=== PATIENT | female | born 1950 | race Caucasian/White ===

== ENCOUNTER 2016-11-30 17:08 | Inpatient (IN) | payer MEDICARE, OTHER ==
[~2016-11-30] VITALS: Ht 162.6 cm; Wt 115.7 kg
[~2016-11-30 17:08] MED LIST: ALDACTONE25 MG PO; AMITRIPTYLINE H50 MG PO; BAYER CHEWABLE81 MG PO; BETAPACE 80 MG80 MG PO; BYSTOLIC5 MG PO; CYMBALTA60 MG PO; DALIRESP500 MCG PO; EFFIENT10 MG PO; ELAVIL25 MG PO; ESTRACE1 MG PO; FERROUS SULFAT325 MG PO; FLORAJEN3 CAPS460 MG PO; GLUCOPHAGE500 MG PO; IPRAT-ALBUT 0.5-3 ML UPD; K-DUR20 MEQ PO; LACTINEX C1 TAB.CHEW PO; LASIX40 MG PO; LASIX80 MG PO; LISINOPRIL5 MG PO; LIVALO1 MG PO; MAG-OX 400 MG400 MG PO; METOPROLOL TART25 MG PO; MUCINEX DM ER1 EAC1 PO; NEURONTIN800 MG PO; NORVASC2.5 MG PO; POTASSIUM CHLO10 ME1 PO; PRAVACHOL80 MG PO; PROTONIX40 MG PO; PULMICORT0.5 MG/21 UPD; SINGULAIR10 MG PO; STERAPRED DS 1210 MG PO; TOVIAZ4 MG; TYLENOL325 MG PO; VIBRAMYCIN 100100 MG PO; VITAMIN D2000 UNIT; ZYLOPRIM300 MG PO
[2016-11-30 17:35] VITALS: BP 108/50; BMI 43.8
[2016-11-30] MEDS ORDERED: GLUCOPHAGE500 MG PO (17:55)
[2016-11-30] MEDS ORDERED: MAG-OX 400 MG400 MG PO (17:58)
[2016-11-30 18:46] LABS: HEMATOCRIT 32.3 % (36.0-48.0); HEMOGLOBIN 10.1 g/dL (12-16); MCH 28.9 pg (26.0-34.0); MCHC 31.3 g/dL (31.0-37.0); MCV 92.6 fL (80.0-100.0); MEAN PLATELET VOLUME 10.3 fL (7.4-10.4); PLATELET COUNT 225 10x3/uL (130-400); RBC 3.49 10x6/uL (4.00-5.40); RDW 16.6 % (11.5-14.5)
[2016-11-30 19:01] LABS: ALBUMIN 2.5 g/dL (3.4-5.0); ANION GAP 15.5 mmol/L (8-16); BILIRUBIN - TOTAL 0.47 mg/dL (0.2-1.3); CALCIUM 8.9 mg/dL (8.5-10.1); CREATININE - SERUM 1.3 mg/dL (0.6-1.3); POTASSIUM - SERUM 4.5 mmol/L (3.5-5.1); PROTEIN - SERUM 5.6 g/dL (6.4-8.2)
[2016-11-30 19:03] LABS: LYMPHOCYTES 7 % (15-50); MONOCYTES 1 % (2-11); NEUTROPHILS 72 % (40-80); PLATELET ESTIMATE NORMAL
[2016-11-30 19:20] VITALS: BP 117/66
[2016-11-30 20:00] VITALS: BP 128/53
[2016-11-30 20:14] VITALS: BP 116/73
[2016-12-01 00:19] VITALS: BP 99/43
--- NOTE | 2016-12-01 02:13 | NUR ---
EYES CLOSED RESPIRATIONS WITH EASE AND UNLABORED.
[2016-12-01 04:22] VITALS: BP 100/45
[2016-12-01 06:14] LABS: BASOPHILS 0.1 % (0.0-2.0); EOSINOPHILS 0.1 % (0-7); HEMATOCRIT 28.9 % (36.0-48.0); IMMATURE GRANULOCYTES 0.8 % (0-5); LYMPHOCYTES 6.4 % (15-50); MCH 28.6 pg (26.0-34.0); MCHC 31.1 g/dL (31.0-37.0); MCV 91.7 fL (80.0-100.0); MEAN PLATELET VOLUME 10.2 fL (7.4-10.4); NEUTROPHILS 87.6 % (40-80); PLATELET COUNT 217 10x3/uL (130-400); RBC 3.15 10x6/uL (4.00-5.40); RDW 16.5 % (11.5-14.5)
[2016-12-01 06:37] LABS: ALBUMIN 1.9 g/dL (3.4-5.0); ANION GAP 13.1 mmol/L (8-16); BILIRUBIN - TOTAL 0.6 mg/dL (0.2-1.3); CALCIUM 8.5 mg/dL (8.5-10.1); CARBON DIOXIDE 28.3 mmol/L (21.0-32.0); POTASSIUM - SERUM 4.4 mmol/L (3.5-5.1); PROTEIN - SERUM 5.9 g/dL (6.4-8.2)
[2016-12-01 06:43] LABS: CREATININE - SERUM 1.7 mg/dL (0.6-1.3)
[2016-12-01 08:09] VITALS: BP 104/51
--- NOTE | 2016-12-01 11:14 | NUR ---
AROUSES EASILY TO VERBAL STIMULATION. NO C/O PAIN OR DISCOMFORT AT THIS TIME. CHEST IS CLEAR BILATERALLY, BUT DIMINISHED ON LEFT LOWER LOBES. REPORTS OCCASSIONAL PRODUCTIVE COUGH. DENIES NEEDS.
[2016-12-01 12:49] VITALS: BP 104/48
[2016-12-01 13:30] VITALS: Ht 162.6 cm; Wt 115.7 kg
--- NOTE | 2016-12-01 14:50 | NUR ---
RESTING WITH EYES CLOSED - NO S/SX OF DISTRESS OBSERVED
[2016-12-01 15:53] VITALS: BP 88/44
[2016-12-01 19:00] VITALS: BP 111/48
--- NOTE | 2016-12-01 19:25 | NUR ---
Received patient in bed, IV infusing with NS, no voiced complaints, oxygen on @ 2L/min. Respirations unlabored.
[2016-12-02 04:42] VITALS: BP 98/48
[2016-12-02 05:09] LABS: BASOPHILS 0 % (0.0-2.0); EOSINOPHILS 0 % (0-7); HEMATOCRIT 28.5 % (36.0-48.0); HEMOGLOBIN 8.7 g/dL (12-16); IMMATURE GRANULOCYTES 0.8 % (0-5); LYMPHOCYTES 4.3 % (15-50); MCHC 30.5 g/dL (31.0-37.0); MCV 91.6 fL (80.0-100.0); MEAN PLATELET VOLUME 10.6 fL (7.4-10.4); MONOCYTES 0.9 % (2-11); PLATELET COUNT 221 10x3/uL (130-400); RBC 3.11 10x6/uL (4.00-5.40); RDW 16.4 % (11.5-14.5); WBC 21.3 10x3/uL (4.8-10.8)
[2016-12-02 05:49] LABS: BILIRUBIN - TOTAL 0.23 mg/dL (0.2-1.3); CALCIUM 8.9 mg/dL (8.5-10.1); CARBON DIOXIDE 26.7 mmol/L (21.0-32.0); CREATININE - SERUM 1.7 mg/dL (0.6-1.3); PROTEIN - SERUM 6.4 g/dL (6.4-8.2)
[2016-12-02 06:05] LABS: ANION GAP 13.8 mmol/L (8-16); POTASSIUM - SERUM 3.5 mmol/L (3.5-5.1)
--- NOTE | 2016-12-02 06:15 | NUR ---
Slept on and off, compliant with medications, up to bathroom x 3, voiding. Vioded x 1 without measuring, has hat in toilet, voided a furthur 500mls this shift. States she feels she is improving. Denies pain or discomfort at this time.
--- NOTE | 2016-12-02 08:30 | NUR ---
RECIEVED REPORT ON PATIENT, PATIENT IS ALERT AND ORIENTED. PATIENTIS SITTING ON SIDE OF BED AT THIS TIME. PATIENT HAS A L WRIST IV WITH NS AT 10ML/HR. PATIENT IS SR ON MONITOR WITH A RATE OF 78. PATIENT DENIES ANY NEEDS OR COMPLAINTS AT THIS TIME. WILL CONT TO MONITOR PATIENT. CPOC
[2016-12-02 08:38] VITALS: BP 113/46
[2016-12-02 09:03] LABS: % SATURATION 4 % (15-55); IRON 13 ug/dl (35-150); TOTAL IRON BIND CAPACITY 294 ug/dl (260-445); UNSAT IRON BIND CAPACITY 281 ug/dl (150-375)
--- NOTE | 2016-12-02 11:15 | NUR ---
PATIENT SITTING UP IN BED EATING LUNCH. DENIES ANY NEEDS AT THIS TIME. CPOC
--- NOTE | 2016-12-02 13:15 | NUR ---
PATIENT IV INFILTRATED, IV DC WITH CATH TIP INTACT. IV RESITED TO R HAND, 22G. PATENT. WILL CONT TO MONITOR
[2016-12-02 13:40] VITALS: BP 101/52
[2016-12-02 16:07] VITALS: BP 107/58
--- NOTE | 2016-12-02 18:00 | NUR ---
PATIENT SITTING UP IN BED EATING DINNER. DENIES ANY NEEDS OR PAIN AT THIS TIME. WILL CONT TO MONITOR PATIENT
[2016-12-02 23:00] VITALS: BP 128/75
--- NOTE | 2016-12-03 04:35 | NUR ---
LYING SUPINE IN MID CHARLES'S POSITION. EYES CLOSED AND RESPIRATIONS EVEN AND UNLABORED. CALL LIGHT IN REACH, BED IN LOWEST POSITION AND SR X2. CALL LIGHT IN REACH, WILL CONTINUE WITH PLAN OF CARE.
[2016-12-03 06:53] LABS: BASOPHILS 0.1 % (0.0-2.0); EOSINOPHILS 0 % (0-7); HEMATOCRIT 29.8 % (36.0-48.0); HEMOGLOBIN 9.1 g/dL (12-16); LYMPHOCYTES 5.9 % (15-50); MCH 28.2 pg (26.0-34.0); MCHC 30.5 g/dL (31.0-37.0); MCV 92.3 fL (80.0-100.0); MEAN PLATELET VOLUME 10.8 fL (7.4-10.4); MONOCYTES 2.8 % (2-11); NEUTROPHILS 90.2 % (40-80); PLATELET COUNT 261 10x3/uL (130-400); RBC 3.23 10x6/uL (4.00-5.40); RDW 16.1 % (11.5-14.5)
[2016-12-03 07:08] LABS: WBC 14.7 10x3/uL (4.8-10.8)
[2016-12-03 07:56] LABS: CALCIUM 8.8 mg/dL (8.5-10.1); CARBON DIOXIDE 24.6 mmol/L (21.0-32.0); CREATININE - SERUM 1.4 mg/dL (0.6-1.3); POTASSIUM - SERUM 3.6 mmol/L (3.5-5.1)
[2016-12-03 08:21] VITALS: BP 127/65
--- NOTE | 2016-12-03 09:00 | NUR ---
Patient Name: GENEVIEVE MOLINA Admission Status: Elective Accout number: [id number] Admission Date: 11-30-2016 : 1950 Admission Diagnosis: Attending: TREASURE Current LOS: 3 Anticipated DC Date: 12-07-2016 Planned Disposition: Home Primary Insurance: MEDICARE A & B Discharge Planning Comments: CM MET WITH PATIENT REGARDING D/C NEEDS AND PLANS. PATIENT STATED SHE LIVES WITH HER SPOUSE (KAR) AND HE WILL TRANSPORT PATIENT HOME AT D/C. PATIENT STATED SHE HAS 3 STEPS W/RAILS TO ENTER HOME AND NO STAIRS INSIDE. PATIENT IS INDEPENDENT WITH HER CARE AND HAS A NEBULIZER AT HOME IF NEEDED. PATIENTS PCP IS DR. UMANZOR AND USES [facility] ON [facility]. CM SPOKE WITH PATIENT REGARDING HOME HEALTH AND SHE STATED "NO, I DO NOT WANT HOME HEALTH." CM WILL CONTINUE TO FOLLOW PATIENT WITH D/C NEEDS AND PLANS. PCP DR. UMANZOR [employer] [facility] [phone] KAR (SPOUSE) [phone] Maintenance Mechanic Supervisor: Justina Hennessy Is the patient Alert and Oriented? Yes 0 * How many steps to enter\\exit or inside your home? 3 W/RAILS 0 * PCP DR. UMANZOR 0 * Pharmacy [facility] ON [facility] 0 * Preadmission Environment Home with Family 0 * ADLs Independent 0 * Equipment Nebulizer 0 * List name and contact numbers for known caregivers / representatives who currently or will assist patient after discharge: KAR (SPOUSE) [phone] * Community resources currently utilized None 0 * Additional services required to return to the preadmission environment? Yes 0 * Can the patient safely return to the preadmission environment? Yes 0 * Has this patient been hospitalized within the prior 30 days at any hospital? Yes 0 Grand Total: 0
[2016-12-03 12:45] VITALS: BP 111/44
[2016-12-03 16:30] VITALS: BP 112/59
--- NOTE | 2016-12-03 18:41 | NUR ---
PATIENT IS BACK IN BED FROM SITTING UP IN CHAIR. AMBULATION A LITTLE SLOW BUT STEADY. SOB ON EXERTION NOTED. BED IS LOW CALL LIGHT IS IN REACH
[2016-12-03 19:00] VITALS: BP 119/52
--- NOTE | 2016-12-03 19:50 | NUR ---
PATIENT RESTING IN LEFT LATERAL POSITION. NO SIGNS OF DISTRESS NOTED. DENIES ANY NEEDS AT THIS TIME. BED LOW CALL LIGHT IN REACH.
--- NOTE | 2016-12-04 02:15 | NUR ---
LYING SUPINE WITH RESPIRATIONS EVEN AND NON LABORED. OXYGEN ON 2L VIA NC. LEFT UPPER ARM MIDLINE PATENT WITH NS INFUSING @10 ML/HR. PT ON TELEMETRY AND 76 SR. REFUSES SCD'S, CALL LIGHT IN REACH. WILL CONTINUE WITH PLAN OF CARE.
[2016-12-04 04:00] VITALS: BP 124/51
[2016-12-04 05:09] LABS: BASOPHILS 0.1 % (0.0-2.0); EOSINOPHILS 0 % (0-7); HEMATOCRIT 29.7 % (36.0-48.0); HEMOGLOBIN 9.2 g/dL (12-16); IMMATURE GRANULOCYTES 2.4 % (0-5); MCH 28.1 pg (26.0-34.0); MCV 90.8 fL (80.0-100.0); MEAN PLATELET VOLUME 10.8 fL (7.4-10.4); MONOCYTES 5.8 % (2-11); NEUTROPHILS 83.7 % (40-80); PLATELET COUNT 228 10x3/uL (130-400); RBC 3.27 10x6/uL (4.00-5.40); RDW 15.6 % (11.5-14.5)
[2016-12-04 05:31] LABS: WBC 9.9 10x3/uL (4.8-10.8)
[2016-12-04 05:36] LABS: ANION GAP 13.1 mmol/L (8-16); CALCIUM 9.5 mg/dL (8.5-10.1); CARBON DIOXIDE 28.9 mmol/L (21.0-32.0); CREATININE - SERUM 1.2 mg/dL (0.6-1.3)
[2016-12-04 08:30] VITALS: BP 121/52
[2016-12-04 11:52] VITALS: BP 135/62
[2016-12-04 15:55] VITALS: BP 102/44
[2016-12-04 21:18] VITALS: BP 111/41
--- NOTE | 2016-12-05 | NUR ---
LYING SUPINE WITH EYES CLOSED AND RESPIRATIONS EVEN AND NON LABORED. CALL LIGHT IN REACH, WILL CONTINUE WITH PLAN OF CARE.
[2016-12-05 05:38] LABS: BASOPHILS 0.4 % (0.0-2.0); EOSINOPHILS 0.1 % (0-7); HEMATOCRIT 31.4 % (36.0-48.0); HEMOGLOBIN 9.8 g/dL (12-16); IMMATURE GRANULOCYTES 6.8 % (0-5); LYMPHOCYTES 10.9 % (15-50); MCH 28.2 pg (26.0-34.0); MCHC 31.2 g/dL (31.0-37.0); MCV 90.2 fL (80.0-100.0); MEAN PLATELET VOLUME 10.5 fL (7.4-10.4); MONOCYTES 4.9 % (2-11); NEUTROPHILS 76.9 % (40-80); PLATELET COUNT 225 10x3/uL (130-400); RBC 3.48 10x6/uL (4.00-5.40); RDW 15.2 % (11.5-14.5)
[2016-12-05 05:55] LABS: ANION GAP 11.2 mmol/L (8-16); CARBON DIOXIDE 30.7 mmol/L (21.0-32.0); CREATININE - SERUM 1.2 mg/dL (0.6-1.3); POTASSIUM - SERUM 3.9 mmol/L (3.5-5.1)
[2016-12-05 08:15] VITALS: BP 125/57
[2016-12-05 11:46] VITALS: BP 128/62
--- NOTE | 2016-12-05 13:55 | NUR ---
CHANGED DRESSING TO LEFT UPPER ARM MIDLINE. STERILE TECHNIQUE MAINTAINED. BOTH MYSELF AND THE PATIENT WORE A SURGICAL MASK THROUGH THE ENTIRE DRESSING CHANGE.
[2016-12-05 14:21] LABS: FOLATE (FOLIC ACID) - SERUM 7.7 ng/mL (>3.0)
--- NOTE | 2016-12-05 16:07 | NUR ---
NUTRITION MONITORING & EVAL CHART REVIEWED. PROVIDED PT WITH DIABETIC DIET EDU. ANSWERED PT QUESTIONS. ENCOURAGED COMPLIANCE. RD FOLLOWING
[2016-12-05 16:10] VITALS: BP 104/42
[2016-12-05 19:00] VITALS: BP 104/50
--- NOTE | 2016-12-05 22:05 | NUR ---
RESTING IN BED. ALERT ORIENTED CONVERSANT. PROVIDED COUGH SYRUP WITH MEDICATIONS PER REQUEST. NO ACUTE DISTRESS NOTED
[2016-12-06] VITALS: BP 112/84
--- NOTE | 2016-12-06 00:05 | NUR ---
RESTING WITH EYES CLOSED, RESP WITH EASE, NO DISTRESS NOTED, SR'S UP, XL IN REACH
[2016-12-06 04:00] VITALS: BP 121/47
[2016-12-06] MEDS ORDERED: LEVAQUIN750 MG PO (06:49)
[2016-12-06] MEDS ORDERED: BROVANA15 MCG/2 M INH (06:50)
[2016-12-06] MEDS ORDERED: ATROVENT 0.02%2.5 ML UPD (06:50)
[2016-12-06] MEDS ORDERED: XOPENEX 1.1.25 MG/3 UPD (06:51)
[2016-12-06] MEDS ORDERED: GLIPIZIDE10 MG PO (06:54)
[2016-12-06] MEDS ORDERED: STERAPRED DS 1210 MG PO (06:55)
[2016-12-06] MEDS ORDERED: PULMICORT0.5 MG/21 UPD (06:56)
[2016-12-06] MEDS ORDERED: BACTRIM DS TABL1 TAB PO (06:57)
[2016-12-06 06:59] LABS: ANION GAP 8.6 mmol/L (8-16); CALCIUM 9.5 mg/dL (8.5-10.1); CARBON DIOXIDE 32.5 mmol/L (21.0-32.0); CREATININE - SERUM 1.1 mg/dL (0.6-1.3); POTASSIUM - SERUM 4.1 mmol/L (3.5-5.1)
[2016-12-06 07:04] LABS: BASOPHILS 0.6 % (0.0-2.0); EOSINOPHILS 0.6 % (0-7); HEMATOCRIT 33.8 % (36.0-48.0); HEMOGLOBIN 10.6 g/dL (12-16); IMMATURE GRANULOCYTES 9.2 % (0-5); LYMPHOCYTES 11.8 % (15-50); MCH 27.8 pg (26.0-34.0); MCHC 31.4 g/dL (31.0-37.0); MCV 88.7 fL (80.0-100.0); MEAN PLATELET VOLUME 10.4 fL (7.4-10.4); NEUTROPHILS 71.8 % (40-80); PLATELET COUNT 216 10x3/uL (130-400); RBC 3.81 10x6/uL (4.00-5.40); RDW 15.2 % (11.5-14.5); WBC 10.3 10x3/uL (4.8-10.8)
[2016-12-06 08:04] VITALS: BP 117/51
--- NOTE | 2016-12-06 08:42 | NUR ---
PATIENT AWAKE, ALERT AND ORIENTED X'S 4. RESPIRATIONS ARE EVEN AND UNLABORED ON ROOM AIR. PATIENT SITTING UP IN THE CHAIR. NO SIGNS OF DISTRESS NOTED. PATIENT DENIES NEEDS.
--- NOTE | 2016-12-06 10:29 | NUR ---
12/06/2016 10:26 DCP: Discharge Planning Patient Name: GENEVIEVE MOLINA Encounter No: [id number] : 1950 Primary Insurance: MEDICARE A & B Anticipated DC Date: 12-07-2016 Planned Disposition: Home DCP follow-up note: DC order rec'd. Patient and family in agreement with discharge plan. No changes to plan. Case management will follow and assist as needed. Mile [place]
--- NOTE | 2016-12-06 10:35 | NUR ---
12/06/2016 10:34 DCP: Discharge Planning Rollator walker has been delivered to hospital by [facility].
--- NOTE | 2016-12-06 10:53 | NUR ---
LEFT FOREARM MIDLINE CATH DC'D PER ORDERS. DISCHARGE TEACHING COMPLETED, PT VERBALIZED UNDERSTANDING. PT WILL CALL NURSE WHEN READY TO LEAVE THE FLOOR.
--- NOTE | 2016-12-06 11:30 | NUR ---
pt is waiting for family member to pick her up. She doesn't want to take insulin or test at this time.
--- NOTE | 2016-12-06 12:16 | NUR ---
PATIENT LEFT VIA WHEELCHAIR WITH VOLUNTEER STAFF. ASSISTED PATIENT TAKING HER THINGS OUT TO THE VEHICLE SHE IS LEAVING IN.
--- NOTE | 2016-12-09 11:07 | HP ---
PATIENT: GENEVIEVE MOLINA MEDICAL RECORD: [id number] ACCOUNT: [id number] LOCATION:D.MS [id number] : [birth year] ADMISSION DATE: 11/30/16 HISTORY AND PHYSICAL EXAMINATION CHIEF COMPLAINT: Pneumonia and shortness of breath. HISTORY OF PRESENT ILLNESS: She is a 65-year-old female who presented to the office with fever of 101 last night, more shortness of breath, felt like a band across her back. She was in the office a couple of days ago. At that time, her white count was 7000. Today in the office, her white count was 33. X-ray showed a right lower lobe infiltrate, possibly seen the other day, but new left upper lobe infiltrate seen as well. PAST MEDICAL HISTORY: She has a significant past medical history atherosclerotic heart disease with stent in the past. She has a history of CHF, COPD, noninsulin-dependent diabetes mellitus, peripheral neuropathy and hypertension. FAMILY HISTORY: Noncontributory. HOME MEDICATIONS: Include allopurinol, Elavil, aspirin, ferrous sulfate, Lasix, gabapentin, lisinopril, metformin, metoprolol, Singulair, ____, KCl, pravastatin, sotalol and Aldactone. She is supposed to be on updrafts at home. She was on albuterol, but that was discontinued due to sinus tachycardia. She had levalbuterol called in but has not been able to get ____. REVIEW OF SYSTEMS: HEENT: No visual or auditory changes. She has had a little bit of a scratchy throat. Denies any dysphagia. She had a fever up to 101 last night. CARDIOPULMONARY: She denies chest pain, but has had some tightness across her chest with expiration. She has also been complaining of some cough with some shortness of breath, worse on exertion. GASTROINTESTINAL: Denies any abdominal pain, nausea, vomiting or diarrhea. No melena or hematochezia. GENITOURINARY: Denies any dysuria or hematuria. MUSCULOSKELETAL: Some achiness all over joint swelling in the lower extremities as chronic with some knee and low back issues. PHYSICAL EXAMINATION: VITAL SIGNS: Temperature here was 98.6, pulse of 70, respirations 20 and blood pressure 130/76. HEENT: PERRLA, EOMI. Pharynx was clear. NECK: Supple. No JVD or adenopathy. HEART: Had an S1, S2 with II/ systolic ejection murmur. LUNGS: Had some rhonchi heard bibasilar area and in the left upper lobe as well with some expiratory wheezing anteriorly. ABDOMEN: Soft, obese, nontender and nondistended. EXTREMITIES: Had trace edema around the ankles. No calf warmth or tenderness. NEUROLOGIC: Grossly intact. DIAGNOSTIC DATA: Her chest x-ray again, bilateral infiltrates, worse on the left. LABORATORY DATA: White count 33,000 with an H&H of 10 and 33, and platelet HISTORY AND PHYSICAL [id number] GENEVIEVE MOLINA count of 289. ASSESSMENT AND PLAN: Bilateral pneumonia with a history of chronic obstructive pulmonary disease, history of congestive heart failure, diabetes and coronary artery disease. We are going to consult pulmonary. She has been following Dr. Gomez as an outpatient. We are going to start her on Levaquin, Zosyn and levalbuterol nebulizers. We will continue with her home medications. She had been put on fludrocortisone the other day. I believe, she had been having some low blood pressure episodes. We are going to hold that for right now and defer restarting that to her primary care physician, Dr. Meyers. TRANSINT:[id number] Voice Confirmation ID: [id number] DOCUMENT ID: [id number] JOSEPH DANIELLE DO at 1107 CC: [id number] DICTATION DATE: 11/30/16 1638 [employer]DLE SCHOOL SPORTS COACH: 11/30/16 1750 ADM IN [place] [id number] [place] [address]
--- NOTE | 2016-12-26 09:12 | CN ---
PATIENT NAME:GENEVIEVE SKAGGS MEDICAL RECORD: [id number] : 48 LOCATION:D.MS Fam2230 ADMIT DATE: 11/30/16 ACCOUNT: [id number] CONSULTING PHYSICIAN: NIRALI RALPH MD REFERRING PHYSICIAN: DARREN UMANZOR MD DATE OF CONSULTATION: 12/01/2016 Pulmonary Consultation CONSULT REQUESTING PHYSICIAN: Darren Umanzro MD REASON FOR CONSULTATION: Acute exacerbation of chronic obstructive pulmonary disease, bilateral pneumonia. HISTORY OF PRESENT ILLNESS: Ms. Skaggs has a history of COPD and coronary artery disease. The patient has recent hospitalization times 2 days this month. She has fever and chills. She was seen in Dr. Umanzor' office and admitted directly from the office yesterday. She has also fever of 102, now she is not feeling well. She has coughing, wheezing and shortness of breath. REVIEW OF SYSTEMS: Mainly in the history of present illness. PAST MEDICAL HISTORY: 1. COPD. 2. Congestive heart failure. 3. Coronary artery disease. 4. Noninsulin-dependent type 2 diabetes mellitus. 5. Hypertension. PAST SURGICAL HISTORY: She had multiple catheterizations and stent placement. ALLERGIES: SHE IS ALLERGIC TO MORPHINE, CODEINE, ZOCOR AND LIPITOR. PERSONAL AND SOCIAL HISTORY: The patient is an ex-smoker. She is a nondrinker. FAMILY HISTORY: Noncontributory. PHYSICAL EXAMINATION: GENERAL: Now, the patient is lying comfortably. She is not in acute distress. VITAL SIGNS: The blood pressure is 104/51, pulse is 94, respirations 18, temperature 98.2, and SpO2 of 92% on 2 liters nasal cannula. HEENT: Conjunctivae are pink, sclerae are nonicteric. NECK: Supple. No JVD. CHEST: There are bilateral crackles, wheeze on forceful expiration. HEART: Rhythm regular, normal sound, no murmur. ABDOMEN: Soft, bowel sounds present. No hepatosplenomegaly. RECTAL: Deferred. EXTREMITIES: No cyanosis, no clubbing, no pedal edema. SKIN: Warm, normal turgor. CENTRAL NERVOUS SYSTEM: The patient is awake and alert. There is no obvious cranial nerve abnormality. The gait was not tested. CHEST RADIOGRAPH: There is bilateral infiltrate in the left upper lobe and bilateral lower lobes. CONSULT REPORT [id number] GENEVIEVE SKAGGS OTHER LABORATORY DATA: CBC: The WBC is 32,000, hemoglobin is 10, hematocrit 32.3, the platelet count 225. Chemistry: Sodium 135, potassium is 4.4, BUN is 18, creatinine 1.3. The glucose is 163. IMPRESSION: 1. Acute exacerbation of chronic obstructive pulmonary disease. 2. Acute hypoxic respiratory failure. 3. Bilateral pneumonia, most likely hospital-acquired pneumonia as the patient had recent frequent hospitalizations. 4. Leukocytosis secondary to pneumonia. 5. History of congestive heart failure. 6. History of coronary artery disease. 7. Type 2 diabetes mellitus. RECOMMENDATION: Continue Zosyn and Levaquin. I will add vancomycin. I will start methylprednisolone IV. Add ipratropium nebulizer, budesonide and Brovana nebulizer. Continue Xopenex nebulizer. Follow up labs and chest radiograph. Check ABG and serum ammonia level. Dr. Umanzor, once again, thank you for involving me in the care of Ms. Skaggs. TRANSINT:[id number] Voice Confirmation ID: [id number] DOCUMENT ID: [id number] NIRALI RALPH MD at 0912 CC: DARREN UMANZOR MD [id number] DICTATION DATE: 12/01/16 1244 HEALTHCARE ECONOMICS CONSULTANT: 12/01/16 1518 DIS IN 12/06/[address] [address]
== END 2016-12-06 12:18 | disposition home or self-care (01) | DRG 189 ==
LOC: D.MS 17:08
PROVIDERS: ADMIT Family Medicine
PROC: 05HF33Z Insertion of Infusion Device into Left Cephalic Vein, Percutaneous Approach (ICD-10-PCS; principal; 2016-12-03)
DX: J96.21 Acute and chronic respiratory failure with hypoxia (principal); J15.6 Pneumonia due to other Gram-negative bacteria; J15.212 Pneumonia due to Methicillin resistant Staphylococcus aureus; J44.0 Chronic obstructive pulmonary disease with (acute) lower respiratory infection; Z68.41 Body mass index [BMI] 40.0-44.9, adult; J44.1 Chronic obstructive pulmonary disease with (acute) exacerbation; I11.0 Hypertensive heart disease with heart failure; I50.9 Heart failure, unspecified; R00.0 Tachycardia, unspecified; T48.6X5A Adverse effect of antiasthmatics, initial encounter; E11.40 Type 2 diabetes mellitus with diabetic neuropathy, unspecified; E66.01 Morbid (severe) obesity due to excess calories; D50.9 Iron deficiency anemia, unspecified; I25.10 Atherosclerotic heart disease of native coronary artery without angina pectoris; Y95 Nosocomial condition

== ENCOUNTER 2016-12-13 18:41 | Inpatient (IN) | payer MEDICARE, OTHER ==
--- NOTE | 2016-12-12 19:40 | NUR ---
ASSESSMENT COMPLETE, 02-2L, IV-L. BREAST-SL,[id number]-72.5, HAS LISA, [id number], FRIEND AT BEDSIDE, DENIES ANY NEEDS, CALL LIGHT IN REACH, BED IS LOW, SRX2, WILL CONTINUE MONITOR
[~2016-12-13] VITALS: Ht 162.6 cm; Wt 115.7 kg
[~2016-12-13 18:41] MED LIST changes: +ATROVENT 0.02%2.5 ML UPD; +BACTRIM DS TABL1 TAB PO; +BROVANA15 MCG/2 M INH; +GLIPIZIDE10 MG PO; +LEVAQUIN750 MG PO; +XOPENEX 1.1.25 MG/3 UPD
[2016-12-13 20:00] LABS: BASOPHILS 0.1 % (0.0-2.0); EOSINOPHILS 0.1 % (0-7); HEMATOCRIT 33.1 % (36.0-48.0); HEMOGLOBIN 10.4 g/dL (12-16); IMMATURE GRANULOCYTES 1.1 % (0-5); LYMPHOCYTES 9.7 % (15-50); MCH 28.1 pg (26.0-34.0); MCHC 31.4 g/dL (31.0-37.0); MCV 89.5 fL (80.0-100.0); MEAN PLATELET VOLUME 10.8 fL (7.4-10.4); MONOCYTES 2.2 % (2-11); NEUTROPHILS 86.8 % (40-80); PLATELET COUNT 229 10x3/uL (130-400); RDW 16.1 % (11.5-14.5); WBC 15.3 10x3/uL (4.8-10.8)
[2016-12-13 20:12] LABS: ALBUMIN 2.8 g/dL (3.4-5.0); ALKALINE PHOSPHATASE 42 U/L (46-116); ALT (SGPT) 15 U/L (10-68); BILIRUBIN - TOTAL 0.17 mg/dL (0.2-1.3); CALCIUM 10.1 mg/dL (8.5-10.1); CARBON DIOXIDE 23.9 mmol/L (21.0-32.0); CHLORIDE - SERUM 100 mmol/L (98-107); CREATININE - SERUM 5.8 mg/dL (0.6-1.3); PRO BNP 3069 pg/mL (0-125); PROTEIN - SERUM 6.3 g/dL (6.4-8.2); SODIUM 138 mmol/L (136-145); UREA NITROGEN 113 mg/dL (7-18); eGFR NON AFRICAN AMERICAN 8 mL/min (90-120)
[2016-12-13 20:17] LABS: CALC OSMOLALITY 311 mosm/kg (275-300); GLUCOSE 99 mg/dL (74-106)
[2016-12-13 20:24] LABS: POTASSIUM - SERUM 6.5 mmol/L (3.5-5.1); TROPONIN-I < 0.017 ng/mL (0.000-0.060)
[2016-12-13 20:55] LABS: MAGNESIUM - SERUM 2.8 mg/dL (1.8-2.4)
[2016-12-14] VITALS: BP 88/44
--- NOTE | 2016-12-14 00:30 | NUR ---
PT ARRIVED VIA STRETCHER APPROX 1130PM. IV ACCESS RIGHT AC CLOTTED. ATTEMPTED TO RESITE IV, PT REQUESTED THAT MIDLINE BE PLACED LIKE SHE HAD DURING HER LAST ADMISSION. PT HAS IV DOBUTAMINE ORDERED. DISCUSSED WITH CHARGE NURSE ABOUT CALLING PHYSICIAN FOR PO DIURETIC UNTIL VASCULAR ACCESS NURSE COULD SITE PT. CHARGE NURSE STATED THAT SHE DISCUSSED WITH PT THAT PT STATED THAT SHE WOULD ALLOW AN ATTEMPT AT PERIPHERAL IV ACCESS, INSTRUCTED TO CALL ICU AND HAVE AN ICU NURSE ATTEMPT PERIPHERAL ACCESS. CALL PLACED APPROX 0030. REQUEST MADE. AWAITING RESPONSE.
--- NOTE | 2016-12-14 03:08 | NUR ---
STILL NO RESPONSE FROM ICU. STILL AWAITING IV. INFORMED CHARGE NURSE THAT NEW LACTIC ACID VALUE DRAWN SINCE ARRIVAL. VALUE WENT FROM 3.2 UP TO 3.5. CHARGE NURSE CALLED ICU, NO ANSWER
[2016-12-14 04:00] VITALS: BP 77/32
--- NOTE | 2016-12-14 05:03 | NUR ---
CALL LIGHT IN REACH, WILL CONTINUE WITH PLAN OF CARE.
--- NOTE | 2016-12-14 05:08 | NUR ---
ER NURSE TO ROOM TO START IV. ATTEPMT X4. FINAL IV ACCESS TO LEFT BREAST. 22G
--- NOTE | 2016-12-14 06:05 | NUR ---
PAGED DR THOMSON ABOUT LACTIC ACID NOW THAT IV ACCESS ESTABLISHED
--- NOTE | 2016-12-14 07:45 | NUR ---
UP IN RESTROOM WHEN AM ROUNDING MADE. DENIES NEEDS AT PRESENT TIME. IV OF DOBUTREX INFUSING TO LEFT BREAST AT 16.[address] HARDIN HERE AND DOES NOT WANT A MIDLINE OR PICC HE TELLS PATIENT THAT SHE MIGHT BE A DIALYSIS LATER IN LIFE. ON HEART MONITOR SHOWING SR, HR 68. ON 2L PER NC. GENERALIZED EDEMA SEEN TO ALL EXTREMITIES. WILL CONTINUE TO MONITOR.
--- NOTE | 2016-12-14 08:37 | NUR ---
IV access-#22 introcan x 1 atempt in right hand=. Radha Anthony RN
--- NOTE | 2016-12-14 08:38 | NUR ---
PHILIP WITH VASCUALR ASSCESS PLACED A 22G TO RIGHT THUMB AREA.
[2016-12-14 09:07] VITALS: BP 134/53
[2016-12-14 09:30] LABS: BASOPHILS 0 % (0.0-2.0); EOSINOPHILS 0.2 % (0-7); HEMATOCRIT 31.7 % (36.0-48.0); HEMOGLOBIN 9.9 g/dL (12-16); MCHC 31.2 g/dL (31.0-37.0); MCV 89.8 fL (80.0-100.0); MEAN PLATELET VOLUME 10.8 fL (7.4-10.4); MONOCYTES 3.9 % (2-11); NEUTROPHILS 81.9 % (40-80); PLATELET COUNT 195 10x3/uL (130-400); RBC 3.53 10x6/uL (4.00-5.40); RDW 16.3 % (11.5-14.5); WBC 11.3 10x3/uL (4.8-10.8)
--- NOTE | 2016-12-14 09:36 | NUR ---
CALL PLACED TO JUAN RAMOS APN WITH RENAL TO CLARIFY ORDER OF NS AT 100 CC/HR AND PATIENT IS CHF AND SWOLLEN. AWAITING CALL BACK.
[2016-12-14 09:38] LABS: INR 0.94 (0.85-1.17); PROTIME 12.4 SECONDS (11.6-15.0)
[2016-12-14 09:46] LABS: ALBUMIN 2.7 g/dL (3.4-5.0); ANION GAP 19.8 mmol/L (8-16); BILIRUBIN - TOTAL 0.19 mg/dL (0.2-1.3); CARBON DIOXIDE 24.4 mmol/L (21.0-32.0); CREATININE - SERUM 5.5 mg/dL (0.6-1.3); PROTEIN - SERUM 5.9 g/dL (6.4-8.2); URIC ACID 5.7 mg/dL (2.6-7.2)
[2016-12-14 09:50] LABS: POTASSIUM - SERUM 6.2 mmol/L (3.5-5.1)
--- NOTE | 2016-12-14 10:32 | NUR ---
1020-CALL PLACED TO JUAN RAMOS APN WITH RENAL R/T K+ 6.2 AND PATIENT HAVING >700 CC URINE IN BLADDER. AWAITING CALL BACK.
--- NOTE | 2016-12-14 10:42 | NUR ---
RECEUIVED NEW ORDERS FOR PLACEMENT OF GONZALEZ CATH. SHE WILL ADDRESS THE OTHER ISSUES OF NS AND K+ WHEN SHE COMES ONTO FLOOR.
--- NOTE | 2016-12-14 10:55 | NUR ---
GONZALEZ CATH PLACED ORDERED WITH RETURN OF 800 CC CLEAR YELLOW URINE, SENT TO LAB ORDERED.
[2016-12-14 11:04] LABS: APPEARANCE CLEAR (CLEAR); BILIRUBIN NEGATIVE (NEGATIVE); COLOR YELLOW (YELLOW); GLUCOSE NEGATIVE (NEGATIVE); KETONE NEGATIVE (NEGATIVE); LEUKOCYTE ESTERASE NEGATIVE (NEGATIVE); NITRITE NEGATIVE (NEGATIVE); PROTEIN NEGATIVE (NEGATIVE); UROBILINOGEN NORMAL (NORMAL)
[2016-12-14 12:16] VITALS: BP 107/46
--- NOTE | 2016-12-14 12:48 | NUR ---
IV FLUIDS AND ANTIBIOTICS TO LEFT BREAST. WILL CONTINUE DOBUTREX TO RIGHT HAND.
--- NOTE | 2016-12-14 13:16 | NUR ---
UP TO SIDE OF BED VISITING WITH FAMILY - DENIES ANY NEEDS AT THIS TIME.
[2016-12-14 13:51] VITALS: Ht 162.6 cm; Wt 115.7 kg
[2016-12-14 14:35] LABS: ANION GAP 17.2 mmol/L (8-16); CALCIUM 9.8 mg/dL (8.5-10.1); CARBON DIOXIDE 26.4 mmol/L (21.0-32.0); CREATININE - SERUM 5.4 mg/dL (0.6-1.3); POTASSIUM - SERUM 5.6 mmol/L (3.5-5.1)
--- NOTE | 2016-12-14 16:17 | NUR ---
RATIONALE FOR SCD'S EXPLAINED. REFUSED SCD'S
[2016-12-14 16:56] VITALS: BP 102/51
--- NOTE | 2016-12-14 18:41 | NUR ---
UP TO SIDE OF BED TO EAT - FAMILY AT BEDSIDE
[2016-12-14 20:00] VITALS: BP 96/42
[2016-12-15] VITALS: BP 112/48
--- NOTE | 2016-12-15 02:07 | NUR ---
PT RESTING WELL WITHOUT C/O OR DISTRESS NOTED. NO NEEDS VOICED. CALL LIGHT WITHIN REACH. WILL CONT TO MONITOR.
[2016-12-15 04:00] VITALS: BP 103/36
[2016-12-15 04:30] LABS: APPEARANCE CLEAR (CLEAR); BILIRUBIN NEGATIVE (NEGATIVE); COLOR YELLOW (YELLOW); GLUCOSE NEGATIVE (NEGATIVE); KETONE NEGATIVE (NEGATIVE); LEUKOCYTE ESTERASE NEGATIVE (NEGATIVE); NITRITE NEGATIVE (NEGATIVE); PROTEIN NEGATIVE (NEGATIVE); SPECIFIC GRAVITY 1.015 (1.005-1.020); UROBILINOGEN NORMAL (NORMAL); WHITE CELLS - URINE NSEEN /hpf (0-5)
--- NOTE | 2016-12-15 07:10 | NUR ---
RECEIVED REPORT. ASSUMED CARE OF PATIENT. CALL LIGHT WITHIN REACH. PATIENTS SON AT BEDSIDE. PATIENT STATES SHE IS HAVING CONVERSATIONS WITH PEOPLE IN HER ROOM THAT SHE KNOWS ARE NOT REALLY THERE. PATIENT DENIES PAIN AT THIS TIME. PATIENT NOTED TO PULL IV OUT OF LEFT CHEST AREA. ONLY IV PATENT TO RIGHT WRIST INFUSING DOBUTAMINE AT THIS TIME. WILL ATTEMPT TO PLACE 2ND IV SITE AND NOTIFY RENAL OF ONLY ONE IV SITE RENAL DENIED REQUEST FOR PICC OR MIDLINE YESTERDAY. NO ACUTE DISTRESS. RESP EVEN AND UNLABORED.
[2016-12-15 07:15] LABS: BASOPHILS 0.1 % (0.0-2.0); EOSINOPHILS 1.3 % (0-7); HEMATOCRIT 29.7 % (36.0-48.0); HEMOGLOBIN 9.6 g/dL (12-16); IMMATURE GRANULOCYTES 0.6 % (0-5); LYMPHOCYTES 17.1 % (15-50); MCH 28.8 pg (26.0-34.0); MCHC 32.3 g/dL (31.0-37.0); MCV 89.2 fL (80.0-100.0); MEAN PLATELET VOLUME 10.6 fL (7.4-10.4); MONOCYTES 5.7 % (2-11); NEUTROPHILS 75.2 % (40-80); PLATELET COUNT 168 10x3/uL (130-400); RBC 3.33 10x6/uL (4.00-5.40); RDW 16.3 % (11.5-14.5); WBC 10.1 10x3/uL (4.8-10.8)
[2016-12-15 07:32] LABS: ANION GAP 15.2 mmol/L (8-16); CALCIUM 8.9 mg/dL (8.5-10.1); CARBON DIOXIDE 26.4 mmol/L (21.0-32.0); CREATININE - SERUM 4.9 mg/dL (0.6-1.3); PHOSPHOROUS 6.2 mg/dL (2.5-4.9)
[2016-12-15 07:33] LABS: POTASSIUM - SERUM 4.6 mmol/L (3.5-5.1)
[2016-12-15 08:00] VITALS: BP 97/48
--- NOTE | 2016-12-15 08:50 | NUR ---
OOB TO CHAIR AT BEDSIDE. CONSUMING AM MEAL. NO S/S ASPIRATION. NO DISTRESS. CALL LIGHT WITHIN REACH.
[2016-12-15 12:00] VITALS: BP 103/44
--- NOTE | 2016-12-15 12:19 | NUR ---
FSBS 230. 4 UNITS HUMULIN INSULIN ADMINISTERED PER SLIDING SCALE. NO DISTRESS.
[2016-12-15 16:00] VITALS: BP 98/41
--- NOTE | 2016-12-15 17:12 | NUR ---
FSBS 354. 10 UNITS HUMULIN INSULIN ADMINISTERED AT THIS TIME. NO DISTRESS. SITTING TO CHAIR AT BEDSIDE CONSUMING PM MEAL.
--- NOTE | 2016-12-15 19:45 | NUR ---
INTRODUCED MYSELF TO PT PRIMARY RN FOR [facility] SHIFT. PT IS ALERT AND ORIENTED AND RESTING QUIETLY VISITING WITH FAMILY. RR NONLABORED ON RA. PT HAS A R.HAND PIV WITH DOBUTAMINE INFUSING @15.5ML/HR. SITE HAS DRSG CDI WITH SWAB CAPS IN USE. PT HAS GONZALEZ IN PLACE DRAINING TO GRAVITY OFF L.SIDE OF BED. STAT LOCK IN PLACE SECURED TO L.INNER THIGH. PT DENIES ANY CURRENT PAIN OR NEEDS AT THIS TIME. CL IN REACH, BED IN LOWEST, SIDE RAILS X2. WILL CPOC.
[2016-12-15 21:13] VITALS: BP 113/42
--- NOTE | 2016-12-15 23:06 | NUR ---
FSBS 365. CHECKED LATE R/T PTS REQUEST. EARLIER WHEN CHECKED PT WAS 314 BUT DENIED WANTING TREATMENT R/T JUST EATING A CHEESEBURGER AND DINNER AND WANTED TO WAIT TO SEE IF IT WOULD GO DOWN. TREATED PT WITH 10 UNITS OF COVERAGE PER SS. PT WANTED BEDTIME SNACK WELL AND WAS PROVIDED WITH SUGAR FREE JELLO AND SKIM MILK. PT VOICED THANKS AND IS EATING HER SNACK AND DENIES ANY PAIN OR FURTHER NEEDS AT THIS TIME. CL IN REACH, BED IN LOWEST, SIDE RAILS X2. WILL CPOC.
[2016-12-16 00:43] VITALS: BP 115/52
--- NOTE | 2016-12-16 01:25 | NUR ---
PT RESTING QUIETLY IN BED WITH EYES CLOSED. RR NONLABORED ON RA. NO S/S OF DISTRESS OR ANY CURRENT NEEDS AT THIS TIME. CL IN REACH, BED IN LOWEST, SIDE RAILS X2. WILL CTM.
[2016-12-16 05:05] VITALS: BP 112/50
[2016-12-16 06:13] LABS: BASOPHILS 0 % (0.0-2.0); EOSINOPHILS 1.9 % (0-7); HEMATOCRIT 27.3 % (36.0-48.0); HEMOGLOBIN 8.8 g/dL (12-16); IMMATURE GRANULOCYTES 0.3 % (0-5); LYMPHOCYTES 21.5 % (15-50); MCH 28.7 pg (26.0-34.0); MCHC 32.2 g/dL (31.0-37.0); MCV 88.9 fL (80.0-100.0); MEAN PLATELET VOLUME 11.1 fL (7.4-10.4); MONOCYTES 6.4 % (2-11); NEUTROPHILS 69.9 % (40-80); PLATELET COUNT 153 10x3/uL (130-400); RBC 3.07 10x6/uL (4.00-5.40); RDW 16.2 % (11.5-14.5)
[2016-12-16 06:22] LABS: WBC 6.4 10x3/uL (4.8-10.8)
[2016-12-16 06:35] LABS: ANION GAP 12.2 mmol/L (8-16); CALCIUM 8.7 mg/dL (8.5-10.1); CARBON DIOXIDE 28.8 mmol/L (21.0-32.0)
[2016-12-16 06:36] LABS: CREATININE - SERUM 2.8 mg/dL (0.6-1.3)
--- NOTE | 2016-12-16 07:05 | NUR ---
RECEIVED REPORT. ASSUMED CARE OF PATIENT. CALL LIGHT WITHIN REACH. PATIENT SITTING UP TO CHAIR AT BEDSIDE. PATIENT REPEADLY ASKS IF GONZALEZ CATHETER CAN COME OUT. PATIENT EDUCATION PROVIDED, PATIENT THANKED THIS NURSE AND APOLOGIZED FOR NOT REMEMBERING. NO DISTRESS. PATIENT WASHING UP GETTING READY FOR AM MEAL.
[2016-12-16 08:00] VITALS: BP 122/56
--- NOTE | 2016-12-16 08:30 | NUR ---
FSBS 306, 8 UNITS HUMULIN ADMINISTERED PER SLIDING SCALE AT THIS TIME.
[2016-12-16 12:00] VITALS: BP 116/55
--- NOTE | 2016-12-16 12:04 | NUR ---
FSBS 251. 6 UNITS HUMULIN ADMINSTERED PER SLIDING SCALE. NO DISTRESS.
--- NOTE | 2016-12-16 12:48 | NUR ---
GONZALEZ CATHETER D/C'D AT THIS TIME. PATIENT INSTRUCTED SHE WOULD NEED TO VOID WITHIN 6 HOURS TO AVOID REINSERTION OF GONZALEZ. IF PATIENT HAS NOT VOIDED BY 1845, WILL BLADDER SCAN PRIOR TO PLACING GONZALEZ. PATIENT VERBALIZED HER UNDERSTANDING. NO DISTRESS.
--- NOTE | 2016-12-16 15:15 | NUR ---
PATIENT VOIDED 350 CC CLEAR YELLOW URINE AT THIS TIME.
--- NOTE | 2016-12-16 15:51 | NUR ---
PATIENT FOUND TO HAVE 2 SMALL BLISTER LIKE AREAS TO INNER CREASE OF BUTTOCKS. CLEANSE AND MEPILEX 2X2 APPLIED TO PROTECT AREA. NO DISTRESS.
[2016-12-16 16:00] VITALS: BP 116/46
--- NOTE | 2016-12-16 17:15 | NUR ---
FSBS 325. 8 UNITS HUMULIN ADMINISTERED PER SLIDING SCALE.
[2016-12-16 19:00] VITALS: BP 128/55
--- NOTE | 2016-12-16 21:36 | NUR ---
PT AWAKE, ALERT, ORIENTED, LYING IN BED, FAMILY AT BEDSIDE. PT IS C/O INCREASED SOB, NONEXERTIONAL, STATES SHE HAS A CHRONIC HX OF CHF BUT HAS BEEN OFF HER LASIX R/T HER RENAL FUNCTION AND HYPOTENSION. BOTH ARE RESOLVING AND PT STATES SHE FEELS LIKE SHE IS DROWNING. UPON AUSCULTATING ALL LUNG LOBES, SHE IS POSITIVE FOR RONCHI AND EXIRATORY WHEEZING. I HAVE CONTACTED DR. BRISENO SCHOOL COMMISSIONER FOR DR. UMANZOR WHO DID ORDER A ONE TIME DOSE OF LASIX 40MG AND POTASSIUM 20MEQ. WILL ADMINISTER AND WATCH PTS V/S AND OUTPUT CLOSELY.
--- NOTE | 2016-12-16 23:36 | NUR ---
PTS IV INFILTRATED IN RIGHT HAND, D/C WITH CATH TIP INTACT. PT WAS RESITED BY MATTHEW LUX IN THE RIGHT FOREARM WITH 22G, PATENT AND FLUSHES WELL. CONTINUE TO MONITOR CLOSELY. WILL PROVIDE PT WITH A BEDSIDE COMMODE DURING THE NIGHT R/T HER RECEIVING IV LASIX.
[2016-12-17] VITALS: BP 120/63
[2016-12-17 04:00] VITALS: BP 124/62
[2016-12-17 05:17] LABS: BASOPHILS 0.1 % (0.0-2.0); HEMATOCRIT 29.6 % (36.0-48.0); HEMOGLOBIN 9.4 g/dL (12-16); IMMATURE GRANULOCYTES 0.6 % (0-5); LYMPHOCYTES 30.7 % (15-50); MCH 28.2 pg (26.0-34.0); MCHC 31.8 g/dL (31.0-37.0); MCV 88.9 fL (80.0-100.0); MEAN PLATELET VOLUME 10.9 fL (7.4-10.4); NEUTROPHILS 57.6 % (40-80); PLATELET COUNT 159 10x3/uL (130-400); RBC 3.33 10x6/uL (4.00-5.40); RDW 16.1 % (11.5-14.5); WBC 7.7 10x3/uL (4.8-10.8)
[2016-12-17 05:37] LABS: ANION GAP 10.6 mmol/L (8-16); CALCIUM 9.1 mg/dL (8.5-10.1); CARBON DIOXIDE 29.7 mmol/L (21.0-32.0)
[2016-12-17 05:38] LABS: CREATININE - SERUM 1.6 mg/dL (0.6-1.3); PHOSPHOROUS 2.8 mg/dL (2.5-4.9); POTASSIUM - SERUM 3.3 mmol/L (3.5-5.1)
[2016-12-17 08:00] VITALS: BP 134/88
--- NOTE | 2016-12-17 08:00 | NUR ---
INTRODUCED MYSELF TO PT PRIMARY RN FOR [facility] SHIFT. PT IS ALERT AND ORIENTED SITTING UP ON BEDSIDE RESTING QUIETLY. RR NONLABORED ON RA. INITIATED PTS IVPB ROCEPHIN INFUSING OVER 30 MINS VIA R.FA PIV. DRSG CDI AND SWAB CAPS IN USE. PT DENIES ANY CURRENT PAIN OR NEEDS BUT STATES "IM JUST OVER IT ALL AND READY TO GO HOME" TURNED OUT LIGHT REQUESTED AND PT WOULD LIKE TO REST NOW. NO FURTHER NEEDS. WILL CTM.
[2016-12-17 09:05] VITALS: BP 159/70
--- NOTE | 2016-12-17 11:10 | NUR ---
FSBS 214. PT REC'D 4UNITS PER SS INSULIN. PT IS SITTING UP ON SIDE OF BED TALKING WITH A VISITOR. APPLIED PTS OINTMENT TO HER UPPER LIP/NOSE AREA ON HER FEVER BLISTER. PT VOICED THANKS. PT DENIES ANY PAIN OR FURTHER NEEDS AT THIS TIME. CL IN REACH. WILL CPOC.
[2016-12-17 11:59] VITALS: BP 128/67
--- NOTE | 2016-12-17 13:17 | NUR ---
PT SITTING UP ON EDGE OF BED RESTING QUIETLY. RR NONLABORED ON RA. PT STATES SHE IS FEELING WELL BUT STILL WANTS TO JUST GO HOME. PT DENIES ANY CURRENT PAIN OR NEEDS AT THIS TIME. CL IN REACH. WILL CTM.
[2016-12-17 15:46] VITALS: BP 127/76
--- NOTE | 2016-12-17 21:09 | NUR ---
PT SITTING IN CHAIR, AWAKE, ALERT, ORIENTED, INCREASED SOB WITH MINIMAL EXERTION. PT STATES DR. UMANZOR PUT HER ON A FLUID RESTRICTION OF 48 OZ TOTAL Q 24 HOURS. PT DEMONSTRATES MILD CONFUSION. CONTINUE TO MONITOR CLOSELY.
--- NOTE | 2016-12-17 22:02 | NUR ---
PT AWAKE, ALERT, ORIENTED, SHOWERED THIS PM WITH MINIMAL ASSISTANACE. I CHANGED PTS BED AND LINENS, REPLACED TELEMETRY, TX HER BREAKDOWN ON HER BOTTOM, AND PLACED PT BACK IN BED WITHOUT ANY DIFFICULTY. PT DENIES ANY NEEDS AT THIS TIME. CONTINUE TO MONITOR CLOSELY. BED LOW, CALL LIGHT IN REACH, SIDE RAILS X 2, HOB 30 DEGREES.
[2016-12-18] VITALS: BP 129/60
--- NOTE | 2016-12-18 00:21 | NUR ---
PT LYING IN BED ON HER RIGHT SIDE, EYES CLOSED, RESPIRATIONS EVEN AND UNLABORED. PT IS EASILY ROUSABLE TO VERBAL STIMULI. CONTINUE TO MONITOR CLOSELY.
[2016-12-18 04:00] VITALS: BP 139/59
[2016-12-18 05:50] LABS: BASOPHILS 0.2 % (0.0-2.0); EOSINOPHILS 4.6 % (0-7); HEMATOCRIT 28.9 % (36.0-48.0); IMMATURE GRANULOCYTES 0.7 % (0-5); LYMPHOCYTES 32.7 % (15-50); MCH 27.8 pg (26.0-34.0); MCHC 31.1 g/dL (31.0-37.0); MCV 89.2 fL (80.0-100.0); MEAN PLATELET VOLUME 11.1 fL (7.4-10.4); MONOCYTES 8.6 % (2-11); NEUTROPHILS 53.2 % (40-80); PLATELET COUNT 153 10x3/uL (130-400); RBC 3.24 10x6/uL (4.00-5.40); RDW 16.1 % (11.5-14.5); WBC 6.1 10x3/uL (4.8-10.8)
[2016-12-18 06:07] LABS: ANION GAP 12.6 mmol/L (8-16); CALCIUM 8.9 mg/dL (8.5-10.1); CARBON DIOXIDE 26.5 mmol/L (21.0-32.0); MAGNESIUM - SERUM 1.3 mg/dL (1.8-2.4); PHOSPHOROUS 2.6 mg/dL (2.5-4.9); POTASSIUM - SERUM 3.1 mmol/L (3.5-5.1)
[2016-12-18 06:08] LABS: CREATININE - SERUM 1.1 mg/dL (0.6-1.3)
[2016-12-18] MEDS ORDERED: LANTUS INSULIN10 ML SC (07:12)
[2016-12-18] MEDS ORDERED: ACYCLOVIR15 GM TOPICAL (07:13)
[2016-12-18 07:46] VITALS: BP 144/53
--- NOTE | 2016-12-18 09:32 | NUR ---
Patient Name: GENEVIEVE MOLINA Admission Status: ER Accout number: [id number] Admission Date: 12-13-2016 : 1950 Admission Diagnosis:ACUTE KIDNEY FAILURE, UNSPECIFIED Attending: TREASURE Current LOS: 5 Anticipated DC Date: 12-18-2016 Planned Disposition: Home Primary Insurance: MEDICARE A & B Discharge Planning Comments: * Is the patient Alert and Oriented? Yes 0 * How many steps to enter\exit or inside your home? 3 W/RAILS 0 * PCP DR. UMANZOR 0 * Pharmacy [facility]. 0 * Preadmission Environment Home with Family 0 * ADLs Independent 0 * Equipment Nebulizer Rolling Walker 0 * Other Equipment [facility] MED[facility] EQUIPMENT PROVIDER 0 * List name and contact numbers for known caregivers / representatives who currently or will assist patient after discharge: KAR, SPOUSE, * Community resources currently utilized None 0 * Please name any agencies selected above. NONE 0 * Additional services required to return to the preadmission environment? No 0 * Can the patient safely return to the preadmission environment? Yes 0 * Has this patient been hospitalized within the prior 30 days at any hospital? Yes 0 CM MET WITH PT AND SON IN ROOM TO DISCUSS DISCHARGE PLANNING AND NEEDS. PT REPORTS LIVING AT HOME INDEPENDENTLY WITH HER SPOUSE. PT HAS ROLLING WALKER [facility] PT HAS NO OUTSIDE SERVICES ASSISTING IN THE HOME. CM DISCUSSED AVAILABILITY OF HOME HEALTH, REHAB SERVICES AND MEDICAL EQUIPMENT; OFFERED TO HAVE HOME HEALTH CALL PT POST DISCHARGE TO SEE IF PT NEEDED HOME SERVICES . PT DENIES DISCHARGE NEEDS, DECLINES HOME HEALTH, REPORTS HER SON IS HERE TO DRIVE HER HOME FOR DISCHARGE TODAY. IMPORTANT MESSAGE FROM MEDICARE PROVIDED AND EXPLAINED. Tax Assessor: Dakotah Ramirez
--- NOTE | 2016-12-18 09:45 | NUR ---
DISCUSSED DISCONTINUED MEDICATIONS WITH PATIENT AND FAMILY MEMBER. ADVISED THAT MEDICATIONS THAT WERE DISCONTINUED WERE PER DR. HARDIN. ALSO ADVISED THAT DR. UMANZOR WILL FOLLOW AND ADVISE IF A NEPHROLOGY APPT IS NEEDED. VERBAL ACKNOWLEDGEMENT RETURNED
--- NOTE | 2016-12-18 09:51 | NUR ---
ALERT AND ORIENTED X4. SITTING UP IN CHAIR. FAMILY AT BEDSIDE. DC RT AC IV TIP INTACT. DISCHARGE INSTRUCTIONS GIVEN VERBALLY AND WRITTEN. QUESTIONS ABOUT MEDICATIONS. 'S PAGED. REVIEW MEDICATIONS 'S MEDICATIONS INSTRUCTED TO STOP TAKING. DECIDES NOT TO WAIT TO HEAR BACK FROM DOCTOR. SIGNS DISCHARGE PAPERS. ESCORT TO RIDE VIA WHEELCHAIR ACCOMPANIED BY FAMILY. REMAINS FREE FROM INJURY.
--- NOTE | 2016-12-21 16:40 | EC ---
PATIENT:GENEVIEVE MOLINA DATE OF SERVICE: 12/13/16 SEX: F MEDICAL RECORD: [id number] DATE OF : [birth year] LOCATION:D.M2 D.213 AGE OF PATIENT: 66 ADMISSION DATE: 12/13/16 REFERRING PHYSICIAN: INTERPRETING PHYSICIAN: JOAQUIN FRANCES MD ECHOCARDIOGRAM REPORT ECHO CHARGES 5 ECHO LIMITED 1 DOPPLER ECHO COLOR FLOW 2 DOPPLER ECHO PULSE CLINICAL DIAGNOSIS: ECHOCARDIOGRAPHIC MEASUREMENTS (adult normal given) AC root (d.<3.7cm) 2.8 LV Septum d (<1.2 cm> Valve Excursion 1.4 LV Septum (systole) Left Atria (s.<4.0cm> 3.7 LVPW d(<1.2cm) RV (d.<2.3cm) LVPW (sytole) LV diastole(<5.6CM) MV E-F(>70mm/sec) LV systole LVOT Diameter 1.7 MV exc.(>10mm) Est.ejection fraction (50-75%) Pericardial Effusion N DOPPLER: LVIT A E LA RVSP LVOT 143 AOP1/2T Asc. Ao 305 RVOT RA PA AV Gradient Peak 37.2 AV Mean 22.0 AV Area 1.2 MV Gradient Peak MV Mean MV Area COMMENTS: LIMITED STUDY (2-D,COLOR & LIMITED DOPPLER) COMPLETE ECHO DONE ON 10/19/16 Upholstery Repairer: Darcy GONZALEZOE Ski Patrol:Darcy Frances TAPE# PACS DATE OF SERVICE: 12/14/2016 Echocardiogram Limited echo for ejection fraction, complete echo done on 10/19/2016. FINDINGS: 1. Left ventricular chamber size is within normal limits. Left ventricular systolic function is normal. Overall ejection fraction is estimated at 55%. ECHOCARDIOGRAM REPORT [id number] GENEVIEVE MOLINA 2. Left atrium, right atrium, and right ventricular chamber sizes are within normal limits. 3. Valvular structures: Aortic valve demonstrates mild to moderate aortic stenosis, but this is unchanged from the previous echo, the remaining valvular structures have normal structure and motion. 4. No evidence of pericardial effusion or left ventricular thrombus. TRANSINT:[id number] Voice Confirmation ID: [id number] DOCUMENT ID: [id number] JOAQUIN FRANCES MD at 1640 CC: [id number] DICTATION DATE: 12/14/16 1615 EYELET CUTTER: 12/14/16 2211 DIS IN 12/18/16 [facility] [address] [id number]
== END 2016-12-18 11:28 | disposition home or self-care (01) | DRG 683 ==
LOC: D.ER 18:41 → D.M2 22:54
PROVIDERS: Emergency Medicine; Internal Medicine Nephrology; ADMIT Family Medicine
DX: N17.9 Acute kidney failure, unspecified (principal); Z68.41 Body mass index [BMI] 40.0-44.9, adult; I50.9 Heart failure, unspecified; J44.9 Chronic obstructive pulmonary disease, unspecified; I10 Essential (primary) hypertension; I25.10 Atherosclerotic heart disease of native coronary artery without angina pectoris; E87.5 Hyperkalemia; E11.9 Type 2 diabetes mellitus without complications; E66.01 Morbid (severe) obesity due to excess calories

== ENCOUNTER 2016-12-20 10:53 | Inpatient (IN) | payer MEDICARE, OTHER ==
[~2016-12-20] VITALS: Ht 162.6 cm; Wt 110.2 kg
[~2016-12-20 10:53] MED LIST changes: +ACYCLOVIR15 GM TOPICAL; +LANTUS INSULIN10 ML SC
[2016-12-20 12:11] VITALS: BMI 41.8
[2016-12-20 12:13] LABS: ALBUMIN 2.5 g/dL (3.4-5.0); ALKALINE PHOSPHATASE 71 U/L (46-116); ALT (SGPT) 13 U/L (10-68); BASOPHILS 0.1 % (0.0-2.0); BILIRUBIN - TOTAL 0.29 mg/dL (0.2-1.3); CALC OSMOLALITY 283 mosm/kg (275-300); CALCIUM 9.1 mg/dL (8.5-10.1); CARBON DIOXIDE 26.1 mmol/L (21.0-32.0); CHLORIDE - SERUM 103 mmol/L (98-107); CREATININE - SERUM 0.9 mg/dL (0.6-1.3); EOSINOPHILS 2.8 % (0-7); GLUCOSE 209 mg/dL (74-106); HEMATOCRIT 32.1 % (36.0-48.0); HEMOGLOBIN 10.2 g/dL (12-16); IMMATURE GRANULOCYTES 0.5 % (0-5); MCH 28.4 pg (26.0-34.0); MCHC 31.8 g/dL (31.0-37.0); MCV 89.4 fL (80.0-100.0); MEAN PLATELET VOLUME 10.3 fL (7.4-10.4); MONOCYTES 6.2 % (2-11); NEUTROPHILS 66.4 % (40-80); PROTEIN - SERUM 6.3 g/dL (6.4-8.2); RBC 3.59 10x6/uL (4.00-5.40); RDW 15.9 % (11.5-14.5); SODIUM 140 mmol/L (136-145); UREA NITROGEN 11 mg/dL (7-18); WBC 7.4 10x3/uL (4.8-10.8); eGFR NON AFRICAN AMERICAN 66 mL/min (90-120)
[2016-12-20 12:14] VITALS: BP 153/83
[2016-12-20 12:18] LABS: PLATELET COUNT 188 10x3/uL (130-400)
--- NOTE | 2016-12-20 12:20 | NUR ---
PT ARRIVED TO ROOM VIA ADMISSIONS. PT ALERT AND ORIENTED. C/O NAUSEA FROM NOT EATING TODAY. TRAY PROVIDED. TELE PLACED ON. AT BEDSIDE. PT WITH STAGE 2 PU ON COCCYX PEN HOLE SIZE. WILL ATTEMPT TO SITE PT IV AND START CARDIZEM DRIP.
[2016-12-20 12:25] LABS: CKMB 0.8 U/L (0.0-3.6); CREATINE KINASE 16 UL (21-215); PRO BNP 1928 pg/mL (0-125); TROPONIN-I 0.026 ng/mL (0.000-0.060)
--- NOTE | 2016-12-20 13:09 | NUR ---
PT REFUSING FOR ANYONE TO SITE HER EXCEPT FOR PHILIP VASCULAR NURSE. TALKED WITH PHILIP AND SHE IS EATING LUNCH. WILL SITE PT AFTERWARDS.
--- NOTE | 2016-12-20 14:50 | NUR ---
PHILIP VASCULAR NURSE SITED PT TO R WRIST 22G X1 STICK. STARTING CARDIZEM DRIP
--- NOTE | 2016-12-20 14:55 | NUR ---
IV access-# 22 intracath in right wrist for IV. Radha Anthony RN
[2016-12-20 16:23] VITALS: BP 134/78
--- NOTE | 2016-12-20 17:17 | NUR ---
PT IS ON LOVENOX FOR DVT PROPH.
--- NOTE | 2016-12-20 17:25 | NUR ---
RESUMED CARE, IV-R.WRIST-CARDIZEM DRIP-10, [id number], CALL LIGHT IN REACH, BED IS LOW, SRX2, DENIES ANY NEEDS, WILL CONTINUE TO MONITOR
--- NOTE | 2016-12-20 17:46 | NUR ---
PT SITTING UP TO CHAIR DENIES NEEDS
--- NOTE | 2016-12-20 19:25 | NUR ---
RESUMED CARE, IV-R.WRIST-CARDIZEM DRIP -10, [id number], DENIES ANY NEEDS, CALL LIGHT IN REACH, BED IS LOW, SRX2, WILL CONTINUE TO MONITOR
[2016-12-20 20:00] VITALS: BP 116/58
[2016-12-21] VITALS: BP 117/59
[2016-12-21 04:00] VITALS: BP 120/60
--- NOTE | 2016-12-21 04:04 | NUR ---
HOME CARE COMPANION AT BEDSIDE TO OBTAIN VITALS, CALL LIGHT IN REACH. WILL CONTINUE TO MONITOR.
--- NOTE | 2016-12-21 04:14 | NUR ---
SLEEPING, BED IS LOW, SRX2, CALL LIGHT IN REACH
[2016-12-21 05:02] LABS: BASOPHILS 0.2 % (0.0-2.0); EOSINOPHILS 4.7 % (0-7); HEMATOCRIT 28.7 % (36.0-48.0); HEMOGLOBIN 8.9 g/dL (12-16); IMMATURE GRANULOCYTES 0.4 % (0-5); LYMPHOCYTES 38.8 % (15-50); MCH 27.8 pg (26.0-34.0); MCV 89.7 fL (80.0-100.0); MEAN PLATELET VOLUME 9.7 fL (7.4-10.4); MONOCYTES 7.4 % (2-11); NEUTROPHILS 48.5 % (40-80); PLATELET COUNT 194 10x3/uL (130-400); WBC 5.7 10x3/uL (4.8-10.8)
[2016-12-21 05:40] LABS: ANION GAP 15.7 mmol/L (8-16); CALCIUM 8.5 mg/dL (8.5-10.1); CARBON DIOXIDE 24.4 mmol/L (21.0-32.0); CREATININE - SERUM 0.9 mg/dL (0.6-1.3); POTASSIUM - SERUM 3.1 mmol/L (3.5-5.1)
--- NOTE | 2016-12-21 07:15 | NUR ---
PT SITTING UP IN BED DENIES NEEDS WILL CONTINUE TO MONITOR.
[2016-12-21 07:51] VITALS: BP 104/69
--- NOTE | 2016-12-21 08:25 | NUR ---
PT REFUSING TO TAKE ORAL POTASSIUM. PER [facility]. PT IS ON CARDIZEM DRIP SO UNABLE TO DO IV POTASSIUM. SHE IS REFUSING ANOTHER IV SINCE SHE IS A HARD STICK.
[2016-12-21 12:00] VITALS: BP 138/60
[2016-12-21 13:53] VITALS: Ht 162.6 cm; Wt 110.2 kg
--- NOTE | 2016-12-21 14:13 | NUR ---
PT FAMILY IS CONCERNED THAT PT HAS HAD A STROKE BECAUSE SHE IS IRRITABLE I EXPLAINED TO PT FAMILY THAT SHE HAS NO S/S OF A STROKE AND THAT PT SHOWS NO S/S IRRITABILITY WHEN IT IS JUST THE PT AND MYSELF HERE. WHEN PT KIDS ARE IN ROOM SHE IS SHOWING SIGNS OF IRRITABILITY. THEY ARE SAYING THAT "THIS ISNT HER NORMAL BEHAVIOR AND THEY THINK THAT THIS IS BECAUSE THEY DISCONTINUED HER MIGRAINE MEDS PREVIOUSLY DUE TO HER KIDNEYS BEING IN FAILURE. IS THERE SOMETHING THEY CAN RESTART FOR HER MIGRAINES??" PT HAS NOT C/O VALLADARES TODAY. SHE DID HAVE VALLADARES YESTERDAY BUT WAS RESOLVED WITH TYLENOL. ASSISTANT GOLF COURSE SUPERINTENDENT CAME AND GOT ME AND SAID SHE THOUGHT PT LOOKED PALE. WENT TO CHECK ON PT SHES SITTING UP IN BED TALKING WITH VISITOR (YOUNG MAN). VERY INTERESTED IN THE CONVO. I CHECKED HER BS, JUST TO MAKE SURE THAT WAS OK. HER FS IS NOT LOW. ITS HIGH BUT NORMAL FOR HER, BEING A DIABETIC. WILL TREAT HER AT SCHEDULED TIME. PT DENIES NEEDS. WILL CONTINUE TO MONITOR.
[2016-12-21 15:58] VITALS: BP 107/44
--- NOTE | 2016-12-21 17:46 | NUR ---
PT SITTING UP ON SIDE OF BED EATING DINNER DENIES NEEDS AT THIS TIME WILL CONTINUE TO MONITOR.
[2016-12-21 20:00] VITALS: BP 130/65
--- NOTE | 2016-12-21 20:00 | NUR ---
PT RESTING IN BED, WATCHING TV. VOICING NO PAIN OR DISCOMFORT. SALINE LOCK TO RIGHT HAND. NONLABORED RESPIRATIONS ON ROOM AIR. FSBS 199, TREATED WITH SLIDING SCALE INSULIN. CPOC. CALL LIGHT IN REACH.
[2016-12-22] VITALS: BP 132/34
--- NOTE | 2016-12-22 01:59 | NUR ---
RESTING IN BED. SR PER TELEMETRY. NONLABORED RESPIRATIONS ON ROOM AIR. CPOC.
[2016-12-22 04:00] VITALS: BP 141/50
[2016-12-22 06:49] LABS: BASOPHILS 0.1 % (0.0-2.0); EOSINOPHILS 4.3 % (0-7); HEMATOCRIT 28.4 % (36.0-48.0); HEMOGLOBIN 8.9 g/dL (12-16); IMMATURE GRANULOCYTES 0.4 % (0-5); LYMPHOCYTES 39.5 % (15-50); MCH 28.2 pg (26.0-34.0); MCHC 31.3 g/dL (31.0-37.0); MCV 89.9 fL (80.0-100.0); MEAN PLATELET VOLUME 9.8 fL (7.4-10.4); MONOCYTES 5.2 % (2-11); NEUTROPHILS 50.5 % (40-80); PLATELET COUNT 211 10x3/uL (130-400); RBC 3.16 10x6/uL (4.00-5.40); RDW 16.1 % (11.5-14.5)
[2016-12-22 06:50] LABS: WBC 7.7 10x3/uL (4.8-10.8)
--- NOTE | 2016-12-22 07:05 | NUR ---
RECEIVED REPORT. ASSUMED CARE OF PATIENT. RESTING WITH EYES CLOSED ON RIGHT LATERAL SIDE. EASILY AROUSED. RESP EVEN AND UNLABORED. NO DISTRESS. DENIES NEEDS. CALL LIGHT WITHIN REACH.
[2016-12-22 07:09] LABS: CALC OSMOLALITY 279 mosm/kg (275-300); CALCIUM 7.4 mg/dL (8.5-10.1); CARBON DIOXIDE 24.6 mmol/L (21.0-32.0); CHLORIDE - SERUM 104 mmol/L (98-107); CREATININE - SERUM 0.7 mg/dL (0.6-1.3); GLUCOSE 96 mg/dL (74-106); MAGNESIUM - SERUM 1.3 mg/dL (1.8-2.4); PHOSPHOROUS 3.5 mg/dL (2.5-4.9); SODIUM 140 mmol/L (136-145); UREA NITROGEN 14 mg/dL (7-18); eGFR NON AFRICAN AMERICAN 88 mL/min (90-120)
[2016-12-22 07:11] LABS: POTASSIUM - SERUM 2.9 mmol/L (3.5-5.1)
[2016-12-22 08:02] VITALS: BP 134/61
--- NOTE | 2016-12-22 08:42 | NUR ---
PATIENT SITTING UP IN CHAIR AT BEDSIDE FOR AM MEAL. PATIENT ACCEPTING TO TAKE POTASSIUM SUPPLEMENT THIS AM. NO DISTRESS. CALL LIGHT WITHIN REACH. NO DISTRESS.
[2016-12-22] MEDS ORDERED: LASIX40 MG PO (10:16)
[2016-12-22] MEDS ORDERED: LEVEMIR100 U/M1 SC (10:18)
[2016-12-22 11:18] VITALS: BP 125/57
--- NOTE | 2016-12-22 11:54 | NUR ---
FSBS 196. 2 UNITS HUMALOG ADMINISTERED PER SLIDING SCALE. NO DISTRESS.
--- NOTE | 2016-12-22 13:14 | NUR ---
22 GAUGE IV REMOVED FROM RIGHT WRIST AT THIS TIME. PATIENT BEING DISCHARGED TO HOME. NO BLEEDING FROM SITE. 2X2 APPLIED AND SECURED WITH TAPE. CATHETER TIP INTACT. TOLERATED IV D/'D WELL.
--- NOTE | 2016-12-22 14:00 | NUR ---
PATIENT AND SOON TO BE DAUGHTER IN LAW GIVEN DETAILED DISCHARGE INSTRUCTIONS IN REGARDS TO PATIENT MEDICATION AND FOLLOW UP INSTRUCTIONS WITH MD. ALSO GAVE PATIENT EDUCATION IN REGARDS TO USING LEVEMIR INSULIN. INSTUCTIONS PROVIDED AND PATIENT GAVE RETURN DEMONSTRATION ON HOW TO DRAW INSULIN UP IN A SYRINGE. TELEMETRY MONITORED D/C'D AT THIS TIME. PATIENT VERBALZIED UNDERSTANDING OF ALL INSTRUCTIONS PROVIDED.
--- NOTE | 2016-12-22 14:20 | NUR ---
PATIENT LEFT UNIT IN WHEELCHAIR WITH ALL PERSONAL ITEMS AT THIS TIME. PATIENT DISCHARGED TO HOME WITH FAMILY. NO DISTRESS UPON LEAVING UNIT.
--- NOTE | 2016-12-23 13:51 | HP ---
PATIENT: GENEVIEVE MOLINA MEDICAL RECORD: [id number] ACCOUNT: [id number] LOCATION:[address] : [birth year] ADMISSION DATE: 12/20/16 HISTORY AND PHYSICAL EXAMINATION DATE OF ADMISSION: 12/20/2016 CHIEF COMPLAINT: Not feeling well. HISTORY OF PRESENT ILLNESS: The patient states she had no energy, not feeling herself, headache times 1 day, complained of nausea. The patient was released from [facility] 2 days ago. The patient had been given explicit instructions on medications she was to continue. The patient apparently thinks she was told to stop all medications with the exception of her Lantus. Therefore, she is has not taken any of her cardiac medications or high blood pressure medicine. PAST MEDICAL HISTORY: Significant that she was recently discharged from the hospital. She had had acute renal failure. She has a history of having congestive heart failure. She has had arteriosclerotic heart disease. She has had history of asthma, COPD. The patient has postmenopausal syndrome. She has had history of anemia. She suffers from depression, hypothyroidism, and morbid obesity. PAST SURGICAL HISTORY: The patient has had neck surgery times 4. She also had stents placed. She had a cholecystectomy, hysterectomy, and appendectomy. FAMILY HISTORY: Significant for leukemia in a sister, pharyngeal cancer in a brother, atherosclerotic heart disease in both parents. ALLERGIES: CODEINE, LIPITOR, MORPHINE, AND ZOCOR. MEDICATIONS: She had been discharged 2 days ago from [facility] with sotalol 80 mg 1 p.o. b.i.d., Pravachol 80 mg once a day, KCl 20 mEq once a day, Tylenol 650 mg 1 every 6 hours p.r.n. temperature greater than 100.5 or p.r.n. pain, acyclovir ointment 5% applied to her lip 5 times a day, allopurinol 300 b.i.d., Brovana updraft 15 mcg b.i.d., aspirin 81 mg once a day, Pulmicort 0.5 mg/2 mL Respules b.i.d., Estrace 1 mg once a day, ferrous sulfate 325 one p.o. every day, glipizide 10 mg 1 p.o. every day, Lantus 20 units p.o. q.h.s. and Xopenex 1.25 every 4 hours p.r.n. shortness of breath, mag oxide 400 mg daily, metoprolol tartrate 12.5 p.o. b.i.d., and Singulair 10 mg once a day. HABITS: The patient is an ex-smoker. She denies any ethanol use. REVIEW OF SYSTEMS: CONSTITUTIONAL: She denies any headaches, seizures, or syncope. She denies change in visual or auditory acuity. PULMONARY: She has reported increasing shortness of breath with some cough and congestion. CARDIOVASCULAR: Heart has been racing. GASTROINTESTINAL: No chronic nausea, vomiting, melena or hematochezia. GENITOURINARY: No urgency, frequency, or dysuria. PHYSICAL EXAMINATION: GENERAL: The patient is a morbidly obese female who is accompanied by her . Her weight is 238 pounds, her BMI is 40.9. HISTORY AND PHYSICAL [id number] GENEVIEVE MOLINA VITAL SIGNS: Blood pressure 130/74, her pulse was 112, but EKG revealed sinus tachycardia versus uncontrolled atrial fibrillation, rate of approximately 144. Her O2 sat was 97% on room air. Respirations 20. Her O2 sat was 97. She is afebrile. HEENT: Her head is normocephalic. No lesions. Ears: TMs clear. Eyes: Pupils equal, round, and reactive to light. Extraocular movements are intact. Nasal cavity, oral cavity, and oropharynx clear. NECK: Supple. There is no adenopathy. HEART: Tachycardic. LUNGS: She has some faint end expiratory wheezes. Decreased breath sounds in all gonzales. ABDOMEN: Protuberant. EXTREMITIES: Lower extremities had no edema. LABORATORY DATA: The patient had a CBC which was unremarkable today. She had mild anemia. IMAGING: EKG showed a sinus tachycardia, rate of 144. ASSESSMENT: Recent discharge from hospital with noncompliance to medications given, now respiratory distress as well as uncontrolled atrial fibrillation versus sinus tachycardia, history of arteriosclerotic heart disease, gout, chronic obstructive pulmonary disease, asthma, herpes simplex on oral mucosa, history of depression, hypothyroidism and diabetes. PLAN: The patient will be admitted. All medications will be restarted. She should be placed on Cardizem 10 mg IV q.24 hours. Cardiology consultation will be obtained. She will have cardiac enzymes performed. She will also be restarted on Lasix 40 mg once a day along with her potassium. Continued updrafts, O2 as needed. TRANSINT:[id number] Voice Confirmation ID: [id number] DOCUMENT ID: [id number] DARREN UMANZOR MD at 1351 CC: [id number] DICTATION DATE: 12/20/16 1245 ORCHARDIST: 12/20/16 1328 DIS IN 12/22/16 [address] [id number] [place] [id number]
--- NOTE | 2017-01-21 07:19 | DS ---
PATIENT:GENEVIEVE MOLINA :48 MEDICAL RECORD: [id number] DISCHARGE SUMMARY ADMISSION DATE: 12/20/16 DISCHARGE DATE: 12/22/16 DATE OF ADMISSION: 12/20/2016 DATE OF DISCHARGE: 12/22/2016 CONDITION ON DISCHARGE: Improved. ADMITTING DIAGNOSES: Noncompliance to medication, respiratory distress secondary to uncontrolled atrial fibrillation versus sinus tachycardia, history of arteriosclerotic heart disease, gout, chronic obstructive pulmonary disease exacerbation, asthma, herpes simplex, history of depression, hypothyroidism, diabetes and morbid obesity. DISCHARGE DIAGNOSES: Atrial fibrillation, shortness of breath, morbid obesity, congestive heart failure, type 2 diabetes, iron deficiency anemia, hypothyroidism and noncompliance. HOSPITAL COURSE: This patient is a 66-year-old female, who states she had no energy. She was not feeling well, headaches times 1 days, complained of nausea. The patient had been released to [place] approximately 2 days prior. The patient had been given explicit instructions on what medications to take and to continue. She apparently felt the nursing staff had told her to stop all of her medications except her Lantus. The patient presented to my office where she was found to be morbidly obese female, who was accompanied by her . Her weight is 238. BMI is 40.9. PHYSICAL EXAMINATION: VITAL SIGNS: Blood pressure 130/74, pulse 112. EKG reveals sinus tachycardia versus uncontrolled AFib, rate of 144. O2 sat was 97% and respirations were 20. HEENT: Normal. NECK: Supple. There is no adenopathy. LUNGS: Had an expiratory wheeze, decreased breath sounds in all gonzales. HEART: Tachycardic. LABORATORY DATA: CBC was unremarkable. The patient was admitted, placed on Cardizem drip, cardiac enzymes, she was given Lasix as well. She was seen in consultation by Dr. Jayy Small, internal affairs investigator. She was placed on sotalol, as well as metoprolol. The IV Cardizem had been stopped. She was doing quite well on the . She was therefore discharged. DISCHARGE MEDICATIONS: Included KCl 20 mEq 1 p.o. q. day, Lasix 40 mg 1 p.o. q. day, Estrace 1 mg p.o. q. day, aspirin 81 mg once a day, sotalol 80 mg p.o. b.i.d., pravastatin 80 mg 1 p.o. q. day, Singulair 10 mg once a day, Lopressor 25 b.i.d., iron 325 b.i.d., allopurinol 300 mg once a day, Pulmicort 0.5 mg updraft b.i.d., glipizide 10 mg p.o. b.i.d., acyclovir to apply topically 5 times a day, Xopenex 1.25 updraft q.6 hours p.r.n. shortness of breath, Lantus 20 units 1 subQ q. day. DIET: 2200-calorie ADA diet. FOLLOWUP: She would follow with me in approximately 1 week. DISCHARGE SUMMARY REPORT [id number] GENEVIEVE MOLINA ACTIVITIES: Ad shaye. TRANSINT:[id number] Voice Confirmation ID: [id number] DOCUMENT ID: [id number] DARREN UMANZOR MD at 0719 CC: [id number] DICTATION DATE: 01/20/17 1220 ONSHORE DIVER: 01/20/17 2325 DIS IN 12/22/16 [facility] [address] [place] [address]
== END 2016-12-22 14:20 | disposition home or self-care (01) | DRG 309 ==
LOC: D.M2 10:53
PROVIDERS: Family Medicine; ADMIT Family Medicine
DX: I48.91 Unspecified atrial fibrillation (principal); Z68.41 Body mass index [BMI] 40.0-44.9, adult; I50.9 Heart failure, unspecified; J44.9 Chronic obstructive pulmonary disease, unspecified; I25.10 Atherosclerotic heart disease of native coronary artery without angina pectoris; E11.9 Type 2 diabetes mellitus without complications; B00.9 Herpesviral infection, unspecified; D50.9 Iron deficiency anemia, unspecified; R51 Headache; E03.9 Hypothyroidism, unspecified; E66.01 Morbid (severe) obesity due to excess calories; Z91.14 Patient's other noncompliance with medication regimen; Z87.891 Personal history of nicotine dependence

== ENCOUNTER 2017-08-08 16:43 | Observation (INO) | payer MEDICARE, OTHER ==
[~2017-08-08] VITALS: Ht 162.6 cm; Wt 124.7 kg
--- NOTE | ~2017-08-08 | OP ---
PATIENT NAME: GENEVIEVE MOLINA MEDICAL RECORD: [id number] :48 LOCATION:D.M2 D.2117 ADMISSION DATE:08/08/17 SURGEON: NJ WALL MD DATE OF OPERATION: 08/09/2017 PROCEDURE: Left heart catheterization, selective coronary angiography, right coronary artery approach. CATHETERS: A 5-Slovak sheath, 5/4 left and right Abrahan. The procedure was well tolerated. The patient returned to the hooper. Sheath was removed. TR band was placed. FINDINGS: Left ventriculography in 30-degree SYKES view: Normal wall motion, normal systolic function. CORONARY ANATOMY. LEFT MAIN: Left main is free of disease. LAD: Free of disease in the diagonal system. CIRCUMFLEX: Totally occluded as described previously. Fills well via left to left and right to left collaterals. RIGHT CORONARY ARTERY: Dominant artery, gives rise to PDA, free of disease with widely patent stent. IMPRESSION: Noncardiac etiology of dyspnea. TRANSINT:[id number] Voice Confirmation ID: [id number] DOCUMENT ID: [id number] NJ WALL MD CC: [id number] DICTATION DATE: 08/09/17 1222 NURSE'S ASSISTANT: 08/09/17 1302 ADM IN [facility] [address] [id number]
--- NOTE | ~2017-08-08 | HEMODYNAMI ---
PATIENT:GENEVIEVE MOLINA MEDICAL RECORD: [id number] : 48 LOCATION:[facility] D.2117 ADMISSION DATE: 08/08/17 Generatedon:08/09/201712:16 Patient name: GENEVIEVE MOLINA Patient #: [id number] SSN: : 1950 Date of study: 08/09/2017 Page: Of Hemodynamic Procedure Report Patient Data Patient Demographics Procedure consent was obtained First Name: GENEVIEVE Gender: Female Last Name: TRACY : 1950 [facility] Initial: LARISSA Age: 66 year(s) Patient #: [id number] Race: Additional ID: [id number] Contact details Address: [address] [place] [address] [facility] State: [place] City: [facility] Zip code: [address] Past Medical History Allergies Allergen Reaction Date Comments Reported Codeine 11/15/2016 Morphine 11/15/2016 Other allergy 08/09/2017 morphine, codeine, pravastatin. Admission Admission Data Admission Date: 08/08/2017 Admission Time: 21:14 Room #: D.2117 Lab Results Lab Result Date: 08/09/2017 Lab Result Time: 5:30 Biochemistry Name Units Result Min Max BUN mg/dl 23 --(----)-* 7 18 Calcium mg/dl 1.3 *-(----)-- 8.5 10.1 CBC Name Units Result Min Max Hematocrit % 40.8 -*(----)-- 42 54 Hemoglobin g/dl 13.2 -*(----)-- 13.5 17.5 Procedure Procedure Types Cath Procedure Diagnostic Procedure C [facility] w/Coronaries Miscellaneous Procedures Moderate Sedation up to 15 minutes Procedure Description Procedure Date Procedure Date: 08/09/2017 Procedure Start Time: 12:00 Procedure End Time: 12:12 Procedure Staff Name Function Roly Peacock MD Performing Physician Kaila Smiley RT Scrub Ezekiel Noble RN Nurse Carolynn Aguilar RT Scrahmet Campos RT Monitor Procedure Data Cath Procedure Fluoroscopy Diagnostic fluoroscopy Total fluoroscopy Time: 2.6 time: 2.6 min min Diagnostic fluoroscopy Total fluoroscopy dose: 737 dose: 737 mGy mGy Contrast Material Contrast Material Type Amount (ml) Isovue 300 62 Entry Location Entry Primary Successful Side Size Upsize Upsize Entry Closure Mays ccessful Closure Location (Fr) 1 (Fr) 2 (Fr) Remarks Device Remarks Radial Right 6 Fr Mechanical TR BAND artery Short Compression Estimated blood loss: 10 ml Diagnostic catheters Device Type Used For End Catheter Placement Diagnostic Terumo 5Fr [place] 110cm catheter Procedure Complications No complications Procedure Medications Medication Administration Route Dosage 0.9% NaCl I.V. 100 ml/hr Oxygen NC 2 l/min Versed I.V. 2 mg Fentanyl I.V. 100 mcg Heparin Flush Bag added to field 2 bags (1000units/500ml NS) Lidocaine 2% added to field 20 Radial Cocktail added to field 1 syringe (Verapomil 2mg/Nitro 400mcg/Heparin 1500units) Radial Cocktail I.A. 1 syringe (Verapomil 2mg/Nitro 400mcg/Heparin 1500units) Hemodynamics Rest HGB: 13.2 (g/dl) Heart Rate: 73 (bpm) Pressure Samples Time Site Value (mmHg) Purpose Heart Use Rate(bpm) 12:04 LV 163/2,7 Snapshot 82 12:05 AO 127/65(91) Pullback 76 12:05 LV 156/3,8 Pullback 76 Gradients Valve Time Site 1 Site 2 Mean SEP/DFP Peak To Heart Use (mmHg) (sec/min) Peak Rate (mmHg) (bpm) Aortic 12:05 LV AO 23 19 29 76 156/3,8 127/65(91) Calculations Valve P-P Mean Valve Index Valve Source Name Gradient Area Flow (cm2) Aortic 29 23 29 23 Snapshots Pre Cath Intra NCS Post Cath Vital Signs Time Heart Resp SPO2 etCO2 IM1dsun NIBP (mmHg) Rhythm Pain Sedation Rate (ipm) (%) (mmHg) (mmHg) Status Level (bpm) 11:55:17 69 19 96 0 0 156/84(124) NSR 0 (11) 10(A) , No pain 11:59:50 72 12 95 0 0 156/81(134) NSR 0 (11) 10(A) , No pain 12:04:22 76 14 97 0 0 148/75(117) NSR 0 (11) 9(A) , No pain 12:08:55 76 16 97 0 0 154/76(119) NSR 0 (11) 10(A) , No pain 12:13:29 76 13 98 0 0 143/76(108) NSR 0 (11) 10(A) , No pain Medications Time Medication Route Dose Verified Delivered Reason Notes Effectiveness by by 11:51:42 0.9% NaCl I.V. 100 Ezekiel Ezekiel Per ml/hr Real Noble physician RN RN 11:52:02 Oxygen NC 2 l/min Ezekiel Ezekiel Per Real Noble physician RN RN 11:52:23 Versed I.V. 2 mg Ezekiel Ezekiel for sedation Real Noble RN RN 11:52:37 Fentanyl I.V. 100 mcg Ezekiel Ezekiel for sedation Real Noble RN RN 11:52:57 Heparin Flush added 2 bags Ezekiel Ezekiel used for Bag to Lorigan Lorigan procedure (1000units/500ml [facility] RN RN NS) 11:54:25 Lidocaine 2% added 20ml Ezekiel Ezekiel for local to vial Lorigan Lorigan anesthetic field RN RN 12:03:38 Radial Cocktail added 1 Ezekiel Ezekiel used for (Verapomil to syringe Lorigan Lorigan procedure 2mg/Nitro RN RN 400mcg/Heparin 1500units) 12:03:53 Radial Cocktail I.A. 1 Ezekiel Roly for (Verapomil syringe Lorigan Madonna vasodilation 2mg/Nitro MACI MARION 400mcg/Heparin 1500units) Procedure Log Time Note 11:31:24 Carolynn Counts RT(R) sent for patient. Start room use. 11:31:25 Time tracking: Regular hours 11:31:30 Plan of Care:Hemodynamics will remain stable., Cardiac rhythm will remain stable., Comfort level will be maintained., Respiratory function will remain adequate., Patient/ family verbilizes understanding of procedure., Procedure tolerated without complication., Recovers from procedure without complications.. 11:42:05 Patient received from Med II to CCL 1 Alert and oriented. Tansferred to table in Supine position. 11:42:06 Warm blankets applied, and malissa hugger turned on for patient comfort. 11:42:07 Correct patient and procedure confirmed by team. 11:42:09 Signed procedure consent form obtained from patient. 11:42:10 ECG and BP/O2 sat monitors applied to patient. 11:44:45 Full Disclosure recording started 11:46:18 Lab Result : BUN 23 mg/dl 11:46:18 Lab Result : Hematocrit 40.8 % 11:46:18 Lab Result : Hemoglobin 13.2 g/dl 11:46:18 Lab Result : Calcium 1.3 mg/dl 11:47:53 H&P Date Dictated: 08/09/2017 Within 30 days and on chart.. 11:47:56 Pre-procedure instructions explained to patient. 11:47:56 Pre-op teaching completed and patient verbalized understanding. 11:48:21 Family unavailable. 11:48:23 Patient NPO since Midnight. 11:48:38 Patient allergic to Other allergymorphine, codeine, pravastatin. 11:48:40 Is the patient allergic to Iodine/contrast media? No. 11:48:42 Is patient on blood thinner?No 11:48:43 Patient diabetic? Yes. 11:48:44 If diabetic: On Metformin? No 11:48:46 Previous problem with sedation/anesthesia? No ? 11:48:50 Snore? Yes 11:48:52 Deviated septum? No 11:48:53 Sleep apnea? No 11:48:54 Opens mouth fully? Yes 11:48:54 Sticks out tongue? Yes 11:49:13 Airway obstruction? Yes COPD, BRONCHITIS, ASTHMA. 11:49:16 Dentures? No ? 11:49:19 Modified Jovani's test Ulnar < 7 seconds 11:49:26 Patient pain scale 0/10 ?. 11:49:31 IV patent on arrival in left antecubital with 0.9% NaCl at [facility]. 11:49:33 Lab results completed and on chart. 11:49:36 Right Radial & Right Groin area was prepped with chlora-prep and draped in sterile fashion 11:49:38 Alarms reviewed by R. N. 11:49:39 Sharps counted by scrub and verified by R.N. 11:49:42 Use device set Radial Dx 11:49:44 MBrace Wrist Support opened to sterile field. 11:49:44 Tegaderm 4 x 4 opened to sterile field. 11:49:45 Acist Manifold opened to sterile field. 11:49:45 Acist Hand Control opened to sterile field. 11:49:46 Acist Syringe opened to sterile field. 11:49:46 Medline Cath Pack opened to sterile field. 11:49:47 Bag Decanter opened to sterile field. 11:49:48 St Ian 260cm J .035 wire opened to sterile field. 11:50:02 Merit Prelude Radial Sheath (NO COST SUPPLY) opened to sterile field. 11:50:08 Vital chart was started 11:50:16 Baseline sample Acquired. :50:23 Rhythm: sinus rhythm :50:28 Physician arrived :: --------ALL STOP TIME OUT------ :50:29 Final Timeout: patient, procedure, and site verified with staff and physician. All members of the team are in agreement. 11:50:30 Right Radial & Right Groin site verified by team. 11:50:33 Physical assessment completed. ASA score P 2 - A patient with mild systemic disease as per Roly Peacock MD. 11:50:35 Sedation plan: IV Moderate Sedation Versed, Fentanyl 11:51:42 0.9% NaCl 100 ml/hr I.V. was administered by Ezekiel Noble RN; Per physician; 11:52:02 Oxygen 2 l/min NC was administered by Ezekiel Noble RN; Per physician; 11::23 Versed 2 mg I.V. was administered by Ezekiel Noble RN; for sedation; 11:52:37 Fentanyl 100 mcg I.V. was administered by Ezekiel Noble RN; for sedation; 11:52:57 Heparin Flush Bag (1000units/500ml NS) 2 bags added to field was administered by Ezekiel Noble RN; used for procedure; 11:54:25 Lidocaine 2% 20ml vial added to field was administered by Ezekiel Noble RN; for local anesthetic; 12:00:23 Procedure started. 12:00:39 Zero performed for pressure channel P1 12:00:57 Local anesthetic to right radial artery with Lidocaine 2% by Roly Peacock MD.INITIAL ACCESS ONLY 12:01:52 A 6 Fr Short sheath was inserted into the Right Radial artery 12:01:58 j wire advanced. 12:03:23 A Diagnostic [employer] 5Fr [place] 110cm catheter was advanced over the wire and used for . 12:03:35 LV angiography performed. 12:03:38 Radial Cocktail (Verapomil 2mg/Nitro 400mcg/Heparin 1500units) 1 syringe added to field was administered by Ezekiel Noble RN; used for procedure; 12:03:39 LV gram done using SYKES 12:03:53 Radial Cocktail (Verapomil 2mg/Nitro 400mcg/Heparin 1500units) 1 syringe I.A. was administered by Roly Peacock MD; for vasodilation; 12:05:11 EF : 55 % 12:05:55 RCA angiography performed. 12:07:48 LCA angiography performed. 12:09:24 Catheter removed. 12:09:32 Terumo TR Band Standard opened to sterile field. 12:09:34 Terumo 6Fr Slender Glidesheath opened to sterile field. 12:09:57 Sheath removed intact; hemostasis achieved with Mechanical Compression to the Right Radial artery. 12:10:01 Procedure ended.(Physican Out) 12:10:23 Fluoroscopy time 02.60 minutes. 12:10:28 Fluoroscopy dose: 737 mGy 12:10:28 Flurop Dose total: 737 12:10:36 Contrast amount:Isovue 300 62ml. 12:10:40 Sharps counted by scrub and verified by R.N. 12:10:51 TR band inflated with 13cc of air. 12:11:05 Insertion/operative site no bleeding no hematoma. 12:11:12 Post right radial artery:stable 12:11:22 Post Procedure Pulses reassessed and unchanged 12:11:28 Post procedure rhythm: unchanged. 12:11:31 Estimated blood loss: 10 ml 12:11:34 Post procedure instruction explained to patient.Patient verbalizes understanding. 12:11:39 Patient needs reinforcement of post procedure teaching. 12:11:47 Procedure type changed to Cath procedure, Diagnostic procedure, LHC, LHC w/Coronaries, Miscellaneous Procedures, Moderate Sedation up to 15 minutes 12:11:48 Procedure and supply charges have been captured, reviewed, submitted and are correct. 12:12:26 Procedure Complication : No complications 12:12:28 Vital chart was stopped 12:12:29 See physician's report for complete and final results. 12:12:33 Report given to [facility]. 12:12:38 Patient transfered to [facility] with Bed. 12:12:41 Procedure ended. 12:12:41 Full Disclosure recording stopped 12:12:44 End room use (Document Last) Device Usage Item Name Manufacture Quantity Catalog Hospital Part Current Minimal Lot# / Number Charge Number Stock Stock Serial# Code MBce Tam Taveras 140-0250-00 249368 [id number] 5 Wrist Vascular Support Dynamics Tegaderm 4 3M 1 [id number] 000269 576355 5 x 4 Acist Acist 1 92115 328829 867113 801677 5 Manifold Medical Systems Inc Acist Hand Acist 1 28167 337203 726970 279087 5 Control Medical Systems Inc Acist Acist 1 85494 534970 445418 398883 20 Syringe Medical Systems Inc Medline Cardinal 1 [id number] 270252 50692 404196 5 Cath Pack Health Bag Microtek 1 2002S 242227 04877 981036 [address] Ian St Ian 1 819009 388021 256764 106609 30 260cm J .035 wire Merit Merit 1 132358 408423 5 Prelude Medical Radial Sheath (NO COST SUPPLY) Diagnostic Terumo 1 40-2325 494664 991308 520692 5 Terumo 5Fr [place] 110cm catheter Terumo TR Terumo 1 [id number] 953452 860663 749820 40 Band Standard Terumo 6Fr Terumo 1 [id number] 517835 697729 933812 40 Slender Glidesheath Signature Audit Camargo Stage Time Signature Unsigned Intra-Procedure 08/09/2017 Yesi Campos 12:16:09 PM RT(R) Signatures Monitor : Yesi Campos Signature : RT Date : Time : [address] [address]
[~2017-08-08 16:43] MED LIST changes: +LEVEMIR100 U/M1 SC
[2017-08-08 18:04] LABS: BASOPHILS 0.2 % (0-2); EOSINOPHILS 2.1 % (0-7); HEMATOCRIT 40.8 % (36.0-48.0); HEMOGLOBIN 13.2 g/dL (12-16); IMMATURE GRANULOCYTES 0.4 % (0-5); LYMPHOCYTES 28.5 % (15-50); MCH 29.7 pg (26.0-34.0); MCHC 32.4 g/dL (31.0-37.0); MCV 91.9 fL (80.0-100.0); MEAN PLATELET VOLUME 10.8 fL (7.4-10.4); MONOCYTES 6.2 % (2-11); NEUTROPHILS 62.6 % (40-80); PLATELET COUNT 209 10x3/uL (130-400); RBC 4.44 10x6/uL (4.00-5.40); RDW 14.8 % (11.5-14.5); WBC 9.8 10x3/uL (4.8-10.8)
[2017-08-08 18:24] LABS: ALBUMIN 2.9 g/dL (3.4-5.0); ALKALINE PHOSPHATASE 81 U/L (46-116); ALT (SGPT) 15 U/L (10-68); BILIRUBIN - TOTAL 0.16 mg/dL (0.2-1.3); CALC OSMOLALITY 287 mosm/kg (275-300); CALCIUM 8.8 mg/dL (8.5-10.1); CARBON DIOXIDE 30.5 mmol/L (21.0-32.0); CHLORIDE - SERUM 103 mmol/L (98-107); CREATININE - SERUM 1.3 mg/dL (0.6-1.3); PROTEIN - SERUM 6.5 g/dL (6.4-8.2); SODIUM 141 mmol/L (136-145); UREA NITROGEN 23 mg/dL (7-18); eGFR NON AFRICAN AMERICAN 43 mL/min (90-120)
[2017-08-08 18:25] LABS: GLUCOSE 157 mg/dL (74-106)
[2017-08-08 18:31] LABS: PRO BNP 492 pg/mL (0-125)
[2017-08-08 18:32] LABS: TROPONIN-I < 0.017 ng/mL (0.000-0.060)
[2017-08-08] MEDS ORDERED: LEVEMIR100 U/M1 SC (22:58)
[2017-08-08] MEDS ORDERED: ALDACTONE50 MG PO (22:59)
[2017-08-08] MEDS ORDERED: ZOLOFT50 MG PO (23:00)
[2017-08-08] MEDS ORDERED: NEURONTIN600 MG PO (23:01)
[2017-08-08 23:05] VITALS: BP 133/52; BMI 46.4
[2017-08-09] VITALS: BP 133/52
[2017-08-09 01:17] LABS: CKMB 1.4 U/L (0.0-3.6); CREATINE KINASE 66 UL (21-215)
[2017-08-09 01:18] LABS: TROPONIN-I < 0.017 ng/mL (0.000-0.060)
[2017-08-09 04:00] VITALS: BP 135/47
[2017-08-09 07:02] LABS: CREATINE KINASE 54 UL (21-215); TROPONIN-I < 0.017 ng/mL (0.000-0.060)
[2017-08-09 07:41] LABS: BASOPHILS 0.2 % (0-2); EOSINOPHILS 2.3 % (0-7); HEMATOCRIT 39.2 % (36.0-48.0); HEMOGLOBIN 12.8 g/dL (12-16); IMMATURE GRANULOCYTES 0.6 % (0-5); LYMPHOCYTES 34.2 % (15-50); MCH 30.1 pg (26.0-34.0); MCHC 32.7 g/dL (31.0-37.0); MCV 92.2 fL (80.0-100.0); MEAN PLATELET VOLUME 11.2 fL (7.4-10.4); MONOCYTES 7.1 % (2-11); NEUTROPHILS 55.6 % (40-80); PLATELET COUNT 213 10x3/uL (130-400); RBC 4.25 10x6/uL (4.00-5.40); RDW 14.9 % (11.5-14.5); WBC 8.3 10x3/uL (4.8-10.8)
[2017-08-09 07:45] LABS: ANION GAP 19.5 mmol/L (8-16); CALCIUM 8.7 mg/dL (8.5-10.1); CARBON DIOXIDE 27.5 mmol/L (21.0-32.0); CREATININE - SERUM 0.9 mg/dL (0.6-1.3)
[2017-08-09 09:00] VITALS: BP 147/60
[2017-08-09 11:41] VITALS: Ht 162.6 cm; Wt 124.7 kg
[2017-08-09 13:27] VITALS: BP 167/60
[2017-08-09 17:24] VITALS: BP 98/57
== END 2017-08-09 17:03 | disposition home or self-care (01) ==
LOC: D.ER 16:43 → D.M2 21:14 → OBSVTIME 21:14 → D.M2 08-09 17:03
PROVIDERS: Emergency Medicine; Internal Medicine Cardiovascular Disease; ADMIT Internal Medicine Interventional Cardiology
DX: R07.89 Other chest pain (principal); I25.10 Atherosclerotic heart disease of native coronary artery without angina pectoris; Z95.5 Presence of coronary angioplasty implant and graft; I10 Essential (primary) hypertension; E78.5 Hyperlipidemia, unspecified; E11.40 Type 2 diabetes mellitus with diabetic neuropathy, unspecified; I48.91 Unspecified atrial fibrillation; J44.9 Chronic obstructive pulmonary disease, unspecified; Z87.891 Personal history of nicotine dependence

== ENCOUNTER 2017-09-20 23:34 | Emergency (ER) | payer MEDICARE, OTHER ==
[2017-08-09 11:41] VITALS: BMI 47.2
[~2017-09-20 23:34] MED LIST changes: +ALDACTONE50 MG PO; +NEURONTIN600 MG PO; +ZOLOFT50 MG PO
[2017-09-21 00:16] LABS: HEMOGLOBIN 12.3 g/dL (12-16); LYMPHOCYTES 5.3 % (15-50); MCH 30.1 pg (26.0-34.0); MCHC 33.2 g/dL (31.0-37.0); MCV 90.7 fL (80.0-100.0); MEAN PLATELET VOLUME 9.7 fL (7.4-10.4); NEUTROPHILS 93.6 % (40-80); PLATELET COUNT 212 10x3/uL (130-400); RBC 4.08 10x6/uL (4.00-5.40); WBC 11.1 10x3/uL (4.8-10.8)
[2017-09-21 00:31] LABS: ANION GAP 20.7 mmol/L (8-16); BILIRUBIN - TOTAL 0.21 mg/dL (0.2-1.3); CALCIUM 9.2 mg/dL (8.5-10.1); CARBON DIOXIDE 20.4 mmol/L (21.0-32.0); CREATININE - SERUM 1.5 mg/dL (0.6-1.3); POTASSIUM - SERUM 4.1 mmol/L (3.5-5.1); PROTEIN - SERUM 6.9 g/dL (6.4-8.2)
== END 2017-09-21 02:01 | disposition home or self-care (01) ==
LOC: D.ER 23:34
PROVIDERS: Emergency Medicine
DX: J44.1 Chronic obstructive pulmonary disease with (acute) exacerbation (principal); I50.9 Heart failure, unspecified

== ENCOUNTER 2017-10-11 12:18 | Inpatient (IN) | payer MEDICARE, OTHER ==
[~2017-10-11] VITALS: Ht 162.6 cm; Wt 127.3 kg
[2017-10-11 04:39] VITALS: BP 146/64
[2017-10-11 14:36] LABS: ALBUMIN 3.1 g/dL (3.4-5.0); ALKALINE PHOSPHATASE 98 U/L (46-116); ALT (SGPT) 15 U/L (10-68); BILIRUBIN - TOTAL 0.23 mg/dL (0.2-1.3); CALCIUM 9.5 mg/dL (8.5-10.1); CARBON DIOXIDE 28.6 mmol/L (21.0-32.0); CHLORIDE - SERUM 103 mmol/L (98-107); CREATINE KINASE 40 UL (21-215); CREATININE - SERUM 0.8 mg/dL (0.6-1.3); MAGNESIUM - SERUM 1.8 mg/dL (1.8-2.4); POTASSIUM - SERUM 3.8 mmol/L (3.5-5.1); PRO BNP 509 pg/mL (0-125); PROTEIN - SERUM 7.1 g/dL (6.4-8.2); SODIUM 141 mmol/L (136-145); UREA NITROGEN 16 mg/dL (7-18); eGFR NON AFRICAN AMERICAN 76 mL/min (90-120)
[2017-10-11 14:37] LABS: CALC OSMOLALITY 280 mosm/kg (275-300); GLUCOSE 87 mg/dL (74-106); TROPONIN-I < 0.017 ng/mL (0.000-0.060)
--- NOTE | 2017-10-11 15:00 | NUR ---
PATIENT IV STARTED IN RIGHT HAND X 2 STICKS. PATIENT TOLERATED WITH SMALL AMOUNT OF PAIN. CALL LIGHT WITHIN REACH.
[2017-10-11 16:54] VITALS: Ht 162.6 cm; Wt 127.3 kg
--- NOTE | 2017-10-11 18:55 | NUR ---
PATIENT IN BED WITH IV INTACT. NO COMPLAINTS AT THIS TIME. SITTING UP IN BED WAITING TO GET BREATHING TREATMENT. O2 ON. CALL LIGHT WITHIN REACH.
[2017-10-11 19:52] LABS: CKMB 0.7 U/L (0.0-3.6); CREATINE KINASE 35 UL (21-215)
[2017-10-11 19:53] LABS: TROPONIN-I < 0.017 ng/mL (0.000-0.060)
[2017-10-11 20:00] VITALS: BP 128/57
[2017-10-11 20:23] LABS: BASOPHILS 0.1 % (0-2); EOSINOPHILS 2.4 % (0-7); HEMATOCRIT 40.7 % (36.0-48.0); HEMOGLOBIN 13.1 g/dL (12-16); IMMATURE GRANULOCYTES 0.6 % (0-5); LYMPHOCYTES 22.8 % (15-50); MCHC 32.2 g/dL (31.0-37.0); MCV 93.3 fL (80.0-100.0); MEAN PLATELET VOLUME 10.9 fL (7.4-10.4); MONOCYTES 7.4 % (2-11); NEUTROPHILS 66.7 % (40-80); PLATELET COUNT 233 10x3/uL (130-400); RBC 4.36 10x6/uL (4.00-5.40); RDW 14.9 % (11.5-14.5); WBC 9.3 10x3/uL (4.8-10.8)
--- NOTE | 2017-10-11 21:08 | NUR ---
SIT UP IN BED AND WATCH TV.
--- NOTE | 2017-10-11 23:48 | NUR ---
SENT PT URINE SAMPLE TO LAB.
[2017-10-12] VITALS: BP 115/63
[2017-10-12 00:28] LABS: COLOR YELLOW (YELLOW)
[2017-10-12 00:29] LABS: APPEARANCE CLEAR (CLEAR); BILIRUBIN NEGATIVE (NEGATIVE); GLUCOSE NEGATIVE (NEGATIVE); KETONE NEGATIVE (NEGATIVE); NITRITE NEGATIVE (NEGATIVE); PROTEIN NEGATIVE (NEGATIVE); SPECIFIC GRAVITY 1.015 (1.005-1.020); UROBILINOGEN NORMAL (NORMAL)
--- NOTE | 2017-10-12 00:42 | NUR ---
PATIENT RESTING IN BED WITH EYES CLOSED AND NO VISIBLE SIGNS OF DISTRESS. BED IN THE LOWEST POSITION AND CALL LIGHT WITHIN REACH.
[2017-10-12 01:36] LABS: CKMB 0.6 U/L (0.0-3.6); CREATINE KINASE 39 UL (21-215); TROPONIN-I < 0.017 ng/mL (0.000-0.060)
--- NOTE | 2017-10-12 03:57 | NUR ---
REST IN BED, EYE CLOSE, CALL LIGHT IN REACH.
[2017-10-12 04:00] VITALS: BP 153/64
[2017-10-12 04:37] LABS: BASOPHILS 0.2 % (0-2); EOSINOPHILS 2.4 % (0-7); HEMATOCRIT 39.4 % (36.0-48.0); HEMOGLOBIN 12.8 g/dL (12-16); IMMATURE GRANULOCYTES 0.8 % (0-5); LYMPHOCYTES 24.6 % (15-50); MCHC 32.5 g/dL (31.0-37.0); MCV 92.3 fL (80.0-100.0); MEAN PLATELET VOLUME 11.4 fL (7.4-10.4); MONOCYTES 6.9 % (2-11); NEUTROPHILS 65.1 % (40-80); PLATELET COUNT 273 10x3/uL (130-400); RBC 4.27 10x6/uL (4.00-5.40); RDW 15.1 % (11.5-14.5); WBC 10.1 10x3/uL (4.8-10.8)
[2017-10-12 04:54] LABS: ALBUMIN 2.9 g/dL (3.4-5.0); ALKALINE PHOSPHATASE 88 U/L (46-116); ALT (SGPT) 16 U/L (10-68); CALC OSMOLALITY 287 mosm/kg (275-300); CALCIUM 9.4 mg/dL (8.5-10.1); CARBON DIOXIDE 27.3 mmol/L (21.0-32.0); CHLORIDE - SERUM 101 mmol/L (98-107); CREATININE - SERUM 0.8 mg/dL (0.6-1.3); POTASSIUM - SERUM 3.5 mmol/L (3.5-5.1); PRO BNP 290 pg/mL (0-125); PROTEIN - SERUM 6.7 g/dL (6.4-8.2); SODIUM 139 mmol/L (136-145); UREA NITROGEN 20 mg/dL (7-18); eGFR NON AFRICAN AMERICAN 76 mL/min (90-120)
[2017-10-12 04:55] LABS: GLUCOSE 231 mg/dL (74-106)
[2017-10-12 07:26] LABS: CKMB 0.8 U/L (0.0-3.6); CREATINE KINASE 47 UL (21-215); TROPONIN-I < 0.017 ng/mL (0.000-0.060)
--- NOTE | 2017-10-12 07:30 | NUR ---
AWAKE AND ALERT. ORIENTED X3. C/O HEADACHE THIS AM. WILL CHECK PRN MEDS. LUNGS HAVE CRACKLES THROUGHOUT LUNG ROBERSON. NON PRODUCTIVE COUGH NOTED. SKIN IS INTACT WITHOUT REDNESS. IV TO RIGHT HAND PATENT WITHOUT REDNESS AT INSERTION SITE. DENIES NEEDS.
--- NOTE | 2017-10-12 08:14 | NUR ---
GIVEN 650MG TYLENOL PO FOR C/O HEADACHE. WILL MONITOR. REQUESTED FSBS WHICH WAS 174. NO ACTION TAKEN.
[2017-10-12 09:20] VITALS: BP 148/62
--- NOTE | 2017-10-12 12:07 | NUR ---
FSBS 185. GIVEN 2 UNITS REGULAR SUBQ PER SS. ALSO REQUESTED AND GIVEN 650MG TYLENOL PO FOR CONTINUED C/O HEADACHE. TRANSFERRED TO ROOM. 2132 VIA WC. REPORT CALLED TO MI LUX ON MED 2
--- NOTE | 2017-10-12 12:10 | NUR ---
PT TRANSFERED TO FLOOR VIA W/C WITH AID. WAS REPORTED FSBS 187 WITH COVERAGE GIVEN BEFORE TRANSFER. PT IN ROOM 2129 SO SHE WENT TO VISIT HIM BEFORE GOING TO HER ROOM.
[2017-10-12 16:26] VITALS: BP 125/66
[2017-10-12 20:16] VITALS: BP 135/65
--- NOTE | 2017-10-13 02:42 | NUR ---
PT LYING IN BED WITH HOB UP FOR COMFORT. EYES CLOSED. CHEST RISING AND FALLING. BED IN LOWEST POSITION AND CALL LIGHT WITHIN REACH.
[2017-10-13 04:50] VITALS: BP 153/66
[2017-10-13 05:06] LABS: BASOPHILS 0.1 % (0-2); EOSINOPHILS 4.5 % (0-7); HEMATOCRIT 38.5 % (36.0-48.0); HEMOGLOBIN 12.2 g/dL (12-16); IMMATURE GRANULOCYTES 0.4 % (0-5); MCH 29.7 pg (26.0-34.0); MCHC 31.7 g/dL (31.0-37.0); MCV 93.7 fL (80.0-100.0); MEAN PLATELET VOLUME 10.2 fL (7.4-10.4); MONOCYTES 5.9 % (2-11); NEUTROPHILS 66.1 % (40-80); RBC 4.11 10x6/uL (4.00-5.40)
[2017-10-13 05:07] LABS: PLATELET COUNT 198 10x3/uL (130-400); WBC 7.3 10x3/uL (4.8-10.8)
[2017-10-13 05:29] LABS: CALC OSMOLALITY 288 mosm/kg (275-300); CALCIUM 9.3 mg/dL (8.5-10.1); CARBON DIOXIDE 30.9 mmol/L (21.0-32.0); CHLORIDE - SERUM 102 mmol/L (98-107); CREATININE - SERUM 0.8 mg/dL (0.6-1.3); GLUCOSE 197 mg/dL (74-106); MAGNESIUM - SERUM 2.1 mg/dL (1.8-2.4); PHOSPHOROUS 4.3 mg/dL (2.5-4.9); POTASSIUM - SERUM 3.8 mmol/L (3.5-5.1); SODIUM 141 mmol/L (136-145); UREA NITROGEN 21 mg/dL (7-18); eGFR NON AFRICAN AMERICAN 76 mL/min (90-120)
[2017-10-13 08:47] VITALS: BP 147/62
--- NOTE | 2017-10-13 08:56 | NUR ---
AM MEDS GIVEN AT THIS TIME. PT UP TO SIDE OF BED, DENIES ANY NEEDS AT THIS TIME, CALL LIGHT IN REACH, NAD NOTED, WILL CONTINUE PLAN OF CARE.
--- NOTE | 2017-10-13 11:39 | NUR ---
BLOOD SUGAR OF 163, 2UNITS OF HUMALOG GIVEN AT THIS TIME. OIL PIPELINE OPERATOR AT BEDSIDE TO DO VITAL SIGNS. PT DENIES ANY NEEDS AT THIS TIME. CALL LIGHT IN REACH, NAD NOTED.
[2017-10-13 12:03] VITALS: BP 139/50
[2017-10-13 14:19] LABS: HIV 1 & 2- RAPID SCREEN NEGATIVE (NEGATIVE)
--- NOTE | 2017-10-13 17:15 | NUR ---
BLOOD SUGAR OF 205, 4 UNITS OF HUMULIN R GIVEN AT THIS TIME. PT FIXING TO EAT DINNER, ASKING FOR A CUP OF ICE AND A DIET [place]. WILL PROVIDE PT WITH REQUEST. PT DENIES ANY OTHER NEEDS AT THIS TIME. CALL LIGHT IN REACH, NAD NOTED.
[2017-10-13 20:43] VITALS: BP 174/64
--- NOTE | 2017-10-13 22:34 | NUR ---
INITIAL ROUNDS COMPLETED AT 1920 HRS. PT DENIED ANY DISCOMFORT. ASSESSMENT COMPLETED AT 2004 HRS. VSS. SR PER CM HR 93. O2 2LNC. IV TO R HAND SL. LUNGS DIMINISHED IN BASES BILAT. SMITH. PM FSBS 337. 8 UNITS REG INSULIN GIVEN SUB-Q TO L ABD PER S/S. PM MEDS AND PM LEVIMIR GIVEN. PT CURRENTLY SITTING UP IN A CHAIR. DENIES ANY DISCOMFORT. CALL LIGHT WITHIN REACH.
[2017-10-14 00:06] VITALS: BP 162/58
--- NOTE | 2017-10-14 00:21 | NUR ---
PT RESTING WITH EYES CLOSED. RESP EVEN AND REGULAR. SR UP X2, CALL LIGHT WITHIN REACH.
--- NOTE | 2017-10-14 02:29 | NUR ---
PT RESTING WITH EYES CLOSED. RESP EVEN AND REGULAR. SR UP X2, CALL LIGHT WITHIN REACH.
--- NOTE | 2017-10-14 04:23 | NUR ---
PT AEAKE; DENIES ANY DISCOMFORT. WILL CONTINUE TO MONITOR.
[2017-10-14 05:00] VITALS: BP 132/63
[2017-10-14 05:38] LABS: BASOPHILS 0.1 % (0-2); EOSINOPHILS 0.1 % (0-7); HEMOGLOBIN 11.7 g/dL (12-16); IMMATURE GRANULOCYTES 1.2 % (0-5); LYMPHOCYTES 10.6 % (15-50); MCH 29.5 pg (26.0-34.0); MCHC 31.6 g/dL (31.0-37.0); MCV 93.4 fL (80.0-100.0); MEAN PLATELET VOLUME 10.9 fL (7.4-10.4); MONOCYTES 4.1 % (2-11); NEUTROPHILS 83.9 % (40-80); RBC 3.96 10x6/uL (4.00-5.40); RDW 14.8 % (11.5-14.5)
[2017-10-14 05:42] LABS: PLATELET COUNT 257 10x3/uL (130-400); WBC 9.3 10x3/uL (4.8-10.8)
[2017-10-14 05:49] LABS: ANION GAP 15.6 mmol/L (8-16); CALCIUM 9.2 mg/dL (8.5-10.1); CARBON DIOXIDE 25.8 mmol/L (21.0-32.0); CREATININE - SERUM 0.9 mg/dL (0.6-1.3)
[2017-10-14 05:55] LABS: POTASSIUM - SERUM 4.4 mmol/L (3.5-5.1)
--- NOTE | 2017-10-14 06:41 | NUR ---
VSS THROUGHOUT NIGHT. SR/ST PER CM. PT DENIED ANY DISCOMFORT. AM FSBS 345. 8 UNITS REG INSULIN GIVEN SUB-Q TO R ABD PER S/S. NEEDS MET; WILL CONTINUE TO MONITOR.
--- NOTE | 2017-10-14 07:15 | NUR ---
REPORT RECEIVED. RR EVEN AND UNLABORED, PT DENIES NEEDS AT THIS TIME. FAMILY AT BEDSIDE. WILL CTM,
[2017-10-14] MEDS ORDERED: OMNICEF300 MG PO (07:18)
[2017-10-14] MEDS ORDERED: PREDNISONE10 MG PO (07:25)
[2017-10-14] MEDS ORDERED: XOPENEX 1.1.25 MG/3 UPD (07:27)
[2017-10-14] MEDS ORDERED: ATROVENT 0.02%2.5 ML UPD (07:27)
[2017-10-14] MEDS ORDERED: BROVANA15 MCG/2 M INH (07:27)
[2017-10-14 08:00] VITALS: BP 121/56
--- NOTE | 2017-10-14 10:01 | NUR ---
Patient Name: GENEVIEVE MOLINA Admission Status: Elective Accout number: [id number] Admission Date: 10-11-2017 : 1950 Admission Diagnosis: Attending: ALEXIS THOMSON Current LOS: 3 Anticipated DC Date: 10-14-2017 Planned Disposition: Home Primary Insurance: MEDICARE A & B Discharge Planning Comments: * Is the patient Alert and Oriented? Yes 0 * How many steps to enter\exit or inside your home? 3 W/RAILS 0 * PCP DR. UMANZOR 0 * Pharmacy [facility]. 0 * Preadmission Environment Home with Family 0 * ADLs Independent 0 * Equipment Nebulizer Rolling Walker 0 * Other Equipment [employer] - MEDICAL EQUIPMENT PROVIDER 0 * List name and contact numbers for known caregivers / representatives who currently or will assist patient after discharge: KAR MOLINA, SPOUSE, 0 * Community resources currently utilized None 0 * Please name any agencies selected above. NONE 0 * Additional services required to return to the preadmission environment? No 0 * Can the patient safely return to the preadmission environment? Yes 0 * Has this patient been hospitalized within the prior 30 days at any hospital? No 0 CM RECEIVED DISCHARGE ORDER, MET WITH PT IN ROOM TO DISCUSS DISCHARGE PLANNING AND NEEDS. PT REPORTS LIVING AT HOME INDEPENDENTLY WITH HER SPOUSE. PT HAS NEBULIZER AND ROLLING WALKER FROM [employer]. PT HAS NO OUTSIDE SERVICES ASSISTING IN THE HOME. CM DISCUSSED AVAILABILITY OF HOME HEALTH, REHAB SERVICES AND MEDICAL EQUIPMENT. PT DENIES DISCHARGE NEEDS, REPORTS SHE WILL BE DRIVING HERSELF HOME AT DISCHARGE TODAY, PT'S CAR IS IN THE PARKING LOT. IMPORTANT MESSAGE FROM MEDICARE PROVIDED AND EXPLAINED. MUNICIPAL FIREFIGHTER NURSE NOTIFIED. Digital Product Specialist: Dakotah Ramirez
--- NOTE | 2017-10-14 10:45 | NUR ---
PT D/C. TELE REMOVED AND RETURNED TO COURT ABSTRACTOR, IV CATHETER REMOVED WTIH CATHETER TIP INTACT. D/C INSTRUCTIONS PROVIDED AND PAPER WORK GIVEN. PT VERBALIZED UNDERSTANDING. PT DENIES FUTHER NEEDS AND QUESTIONS, WILL BE LEAVING UNIT VIA WHEELCHAIR.
[2017-10-15 17:12] LABS: HEPATITIS C ANTIBODY 0.1 (0.0-0.9)
--- NOTE | 2017-11-12 08:55 | EC ---
PATIENT:GENEVIEVE MOLINA DATE OF SERVICE: 10/11/17 SEX: F MEDICAL RECORD: [id number] DATE OF : [birth year] LOCATION:D.M2 D.213 AGE OF PATIENT: 66 ADMISSION DATE: 10/11/17 REFERRING PHYSICIAN: INTERPRETING PHYSICIAN: RAMON NORTON MD ECHOCARDIOGRAM REPORT ECHO CHARGES 4 ECHO COMPLETE CLINICAL DIAGNOSIS: CHF ECHOCARDIOGRAPHIC MEASUREMENTS (adult normal given) AC root (d.<3.7cm) 3.0 cm LV Septum d (<1.2 cm> 1.5 cm Valve Excursion 1.2 cm LV Septum (systole) 2.3 cm Left Atria (s.<4.0cm> 4.9 cm LVPW d(<1.2cm) 1.4 cm RV (d.<2.3cm) 2.5 cm LVPW (sytole) 1.9 cm LV diastole(<5.6CM) 5.1 cm MV E-F(>70mm/sec) cm LV systole 3.4 cm LVOT Diameter 1.8 cm MV exc.(>10mm) cm Est.ejection fraction (50-75%) % Pericardial Effusion N DOPPLER: LVIT cm/sec A 121 cm/sec E 101 cm/sec LA cm/sec RVSP mmHg LVOT 112 cm/sec AOP1/2T m/s Asc. Ao 281 cm/sec RVOT 80.0 cm/sec RA cm/sec PA 122 cm/sec AV Gradient Peak 32.0 mmHg AV Mean 18.0 mmHg AV Area 1.0 cm MV Gradient Peak 6.5 mmHg MV Mean 3.0 mmHg MV Area cm COMMENTS: Buffing Machine Operator Semiautomatic: Darcy NATION Change Control Specialist: Luis Norton TAPE# PACS DATE OF SERVICE: 10/11/2017 PROCEDURE: Transthoracic echocardiogram. FINDINGS: Overall, this is a technically difficult study with the image quality being poor. The left ventricular function overall appears to be normal with ejection fraction in the 50% to 55% range, it looks to be having moderate left ventricular hypertrophy and flow characteristics are consistent with diastolic dysfunction. There are no obvious regional wall motion abnormalities. The rest of chambers appear to be normal to mildly enlarged. There is no pericardial ECHOCARDIOGRAM REPORT [id number] GENEVIEVE MOLINA effusion. There is no significant or obvious valvular heart disease demonstrated on today's study. TRANSINT:[id number] Voice Confirmation ID: [id number] DOCUMENT ID: [id number] 10/23/2017 Edited to correct date of service, dmm. RAMON NORTON MD at 0855 CC: [id number] DICTATION DATE: 10/12/17 0958 METAL SHEET ROLLER OPERATOR: 10/12/17 1120 DIS IN 10/14/17 [place] [id number] [place] [id number]
--- NOTE | 2017-12-29 12:28 | DS ---
PATIENT:GENEVIEVE MOLINA :[birth year] MEDICAL RECORD: [id number] DISCHARGE SUMMARY ADMISSION DATE: 10/11/17 DISCHARGE DATE: 10/14/17 DATE OF ADMISSION: 10/11/2017 DATE OF DISCHARGE: 10/14/2017 ADMISSION DIAGNOSES: Congestive heart failure, systolic, acute on chronic. Shortness of breath. Chronic obstructive pulmonary disease with exacerbation. DISCHARGE DIAGNOSES: Congestive heart failure, acute on chronic, systolic. Shortness of breath. Chronic obstructive pulmonary disease with exacerbation. CONSULTS: Dr. Gomez, pulmonology. Dr. Norton, cardiology. HOSPITAL COURSE: The patient was admitted. Serial enzymes were obtained. Aggressive diuresis, nebulizers. The patient gradually improved, cleared for discharge by cardiology. Discharged to home in stable and improved condition. Echocardiogram obtained, ejection fraction 50% to 55% with systolic disease, see chart for further details. Agree with Dr. Gomez's assessment as well as Dr. Norton's. TRANSINT:[id number] Voice Confirmation ID: [id number] DOCUMENT ID: [id number] KAR NEWBY DO at 1228 CC: [id number] DICTATION DATE: 12/28/17 1457 CYLINDER HEAD ASSEMBLER: 12/29/17 0941 DIS IN 10/14/17 [place] [id number] [place] [address]
== END 2017-10-14 11:00 | disposition home or self-care (01) | DRG 291 ==
LOC: D.SDCHOLD 12:18 → D.MS 12:18 → D.M2 12:18 → D.MS 12:26 → D.M2 10-12 12:16
PROVIDERS: Family Medicine; Internal Medicine Cardiovascular Disease; ADMIT Family Medicine
DX: I11.0 Hypertensive heart disease with heart failure (principal); J18.9 Pneumonia, unspecified organism; J44.0 Chronic obstructive pulmonary disease with (acute) lower respiratory infection; J98.11 Atelectasis; J44.1 Chronic obstructive pulmonary disease with (acute) exacerbation; Z68.42 Body mass index [BMI] 45.0-49.9, adult; I50.33 Acute on chronic diastolic (congestive) heart failure; E11.9 Type 2 diabetes mellitus without complications; I25.10 Atherosclerotic heart disease of native coronary artery without angina pectoris; I48.91 Unspecified atrial fibrillation; E66.01 Morbid (severe) obesity due to excess calories; J30.9 Allergic rhinitis, unspecified; E78.5 Hyperlipidemia, unspecified; I35.0 Nonrheumatic aortic (valve) stenosis; Z95.5 Presence of coronary angioplasty implant and graft

== ENCOUNTER → 2018-01-14 14:03 | Outpatient (CLI) | payer MEDICARE, OTHER ==
[2017-10-11 16:54] VITALS: BMI 48.1
[~2018-01-14 14:03] MED LIST changes: +OMNICEF300 MG PO; +PREDNISONE10 MG PO
== END | disposition home or self-care (01) ==
LOC: D.US 14:03
DX: E04.1 Nontoxic single thyroid nodule (principal)

== ENCOUNTER → 2018-01-27 07:22 | Outpatient (CLI) | payer MEDICARE, OTHER ==
[2017-10-11 16:54] VITALS: BMI 48.1
[~2018-01-27 07:22] MED LIST changes: +LANTUS SOL100 UNIT/1
== END | disposition home or self-care (01) ==
LOC: D.NM 07:22
DX: E04.1 Nontoxic single thyroid nodule (principal)

== ENCOUNTER 2018-02-01 14:04 | Emergency (ER) | payer MEDICARE, OTHER ==
[2017-10-11 16:54] VITALS: BMI 48.1
[~2018-02-01 14:04] MED LIST changes: -LANTUS SOL100 UNIT/1
[2018-02-01 15:14] LABS: APPEARANCE HAZY (CLEAR); BASOPHILS 0.2 % (0-2); BILIRUBIN NEGATIVE (NEGATIVE); COLOR YELLOW (YELLOW); EOSINOPHILS 1.5 % (0-7); GLUCOSE NEGATIVE (NEGATIVE); HEMATOCRIT 39.1 % (36.0-48.0); HEMOGLOBIN 12.4 g/dL (12-16); IMMATURE GRANULOCYTES 0.7 % (0-5); KETONE NEGATIVE (NEGATIVE); LYMPHOCYTES 16.2 % (15-50); MCH 28.4 pg (26.0-34.0); MCHC 31.7 g/dL (31.0-37.0); MCV 89.5 fL (80.0-100.0); MEAN PLATELET VOLUME 9.9 fL (7.4-10.4); MONOCYTES 7.4 % (2-11); NITRITE NEGATIVE (NEGATIVE); PROTEIN NEGATIVE (NEGATIVE); RBC 4.37 10x6/uL (4.00-5.40); RDW 15.4 % (11.5-14.5); SPECIFIC GRAVITY 1.015 (1.005-1.020); UROBILINOGEN NORMAL (NORMAL); WBC 8.1 10x3/uL (4.8-10.8)
[2018-02-01 15:20] LABS: PLATELET COUNT 193 10x3/uL (130-400)
[2018-02-01 15:30] LABS: ANION GAP 14.6 mmol/L (8-16); BILIRUBIN - TOTAL 0.37 mg/dL (0.2-1.3); CALCIUM 9.4 mg/dL (8.5-10.1); CARBON DIOXIDE 26.8 mmol/L (21.0-32.0); CREATININE - SERUM 1.1 mg/dL (0.6-1.3); POTASSIUM - SERUM 3.4 mmol/L (3.5-5.1); PROTEIN - SERUM 7.1 g/dL (6.4-8.2)
[2018-02-01 15:33] LABS: TROPONIN-I 0.024 ng/mL (0.000-0.060)
== END 2018-02-01 18:46 | disposition home or self-care (01) ==
LOC: D.ER 14:04
PROVIDERS: Family Medicine
DX: J44.1 Chronic obstructive pulmonary disease with (acute) exacerbation (principal); Z86.79 Personal history of other diseases of the circulatory system; R09.02 Hypoxemia; I50.9 Heart failure, unspecified; F17.200 Nicotine dependence, unspecified, uncomplicated; I44.4 Left anterior fascicular block

== ENCOUNTER → 2018-02-24 19:34 | Outpatient (CLI) | payer MEDICARE, OTHER ==
[2017-10-11 16:54] VITALS: BMI 48.1
[~2018-02-24 19:34] MED LIST changes: +LANTUS SOL100 UNIT/1
== END | disposition home or self-care (01) ==
LOC: D.MAMMO 12-31 16:15
DX: Z12.31 Encounter for screening mammogram for malignant neoplasm of breast (principal)

== ENCOUNTER 2018-04-07 11:59 | Observation (INO) | payer MEDICARE, OTHER ==
[~2018-04-07] VITALS: Ht 162.6 cm; Wt 125.7 kg
--- NOTE | ~2018-04-07 | HEMODYNAMI ---
PATIENT:GENEVIEVE MOLINA MEDICAL RECORD: [id number] : 48 LOCATION:[facility] D.2125 ADMISSION DATE: 04/07/18 Generatedon:04/08/201815:47 Patient name: GENEVIEVE MOLINA Patient #: [id number] SSN: : 1950 Date of study: 04/08/2018 Page: Of Hemodynamic Procedure Report Patient Data Patient Demographics Procedure consent was obtained First Name: GENEVIEVE Gender: Female Last Name: TRACY : 1950 [facility] Initial: LARISSA Age: 67 year(s) Patient #: [id number] Race: Additional ID: [id number] Contact details [address]: [address] [place] [address] [place]: [place] City: [facility] Zip code: [address] Past Medical History Allergies Allergen Reaction Date Comments Reported Codeine 11/15/2016 Morphine 11/15/2016 Other allergy 08/09/2017 morphine, codeine, pravastatin. Other allergy 04/08/2018 LIPITOR, CODEINE, MORPHINE, SIMVASTIN Admission Admission Data Admission Date: 04/07/2018 Admission Time: 15:58 Room #: D.2125 Procedure Procedure Types Cath Procedure Diagnostic Procedure [facility] w/Coronaries Procedure Description Procedure Date Procedure Date: 04/08/2018 Procedure Start Time: 15:32 Procedure End Time: 15:46 Procedure Staff Name Function Jayy Small MD Performing Physician Kaila Smiley RT Monitor Phoenix Bryant RN Nurse Rena Sena RT Scrub Procedure Data Cath Procedure Fluoroscopy Diagnostic fluoroscopy Total fluoroscopy Time: 1.7 time: 1.7 min min Diagnostic fluoroscopy Total fluoroscopy dose: 880 dose: 880 mGy mGy Contrast Material Contrast Material Type Amount (ml) Isovue 370 53 Entry Location Entry Primary Successful Side Size Upsize Upsize Entry Closure Mays ccessful Closure Location (Fr) 1 (Fr) 2 (Fr) Remarks Device Remarks Radial Right 6 Fr Mechanical artery Short Compression Estimated blood loss: 5 ml Diagnostic catheters Device Type Used For End Catheter Placement DIAGNOSTIC Calcium 110cm 5 Procedure Fr catheter ([id number]) Procedure Complications No complications Procedure Medications Medication Administration Route Dosage Oxygen NC 2 l/min Lidocaine 2% added to field 20 Heparin Flush Bag added to field 2 bags (1000units/500ml NS) 0.9% NaCl I.V. 100 ml/hr Versed I.V. 1 mg Fentanyl I.V. 50 mcg Versed I.V. 1 mg Fentanyl I.V. 50 mcg Versed I.V. 1 mg Fentanyl I.V. 50 mcg Radial Cocktail I.A. 1 syringe (Verapomil 2mg/Nitro 400mcg/Heparin 1500units) Hemodynamics Rest Heart Rate: 79 (bpm) Pressure Samples Time Site Value (mmHg) Purpose Heart Use Rate(bpm) 15:38 LV 182/7,28 Snapshot 80 15:39 AO 140/75(102) Pullback 90 15:39 LV 181/12,26 Pullback 90 Gradients Valve Time Site 1 Site 2 Mean SEP/DFP Peak To Heart Use (mmHg) (sec/min) Peak Rate (mmHg) (bpm) Aortic 15:39 LV AO 38 26 41 90 181/12,26 140/75(102) Calculations Valve P-P Mean Valve Index Valve Source Name Gradient Area Flow (cm2) Aortic 41 38 41 38 Snapshots Pre Cath Intra NCS Post Cath Vital Signs Time Heart Resp SPO2 etCO2 NIBP (mmHg) Rhythm Pain Sedation Rate (ipm) (%) (mmHg) Status Level (bpm) 15:16:43 78 21 93 0 136/76(114) NSR 0 (11) 10(A) , No pain 15:21:34 76 20 95 42 133/77(87) NSR 0 (11) 10(A) , No pain 15:26:25 82 19 92 14.2 134/81(112) NSR 0 (11) 10(A) , No pain 15:31:14 87 19 93 0 144/85(125) NSR 0 (11) 10(A) , No pain 15:36:05 89 16 93 0 157/98(125) NSR 0 (11) 9(A) , No pain 15:41:02 90 15 92 0 156/79(121) NSR 0 (11) 9(A) , No pain 15:46:00 92 15 94 24 153/75(118) NSR 0 (11) 10(A) , No pain Medications Time Medication Route Dose Verified Delivered Reason Notes Effectiveness by by 15:24:09 Oxygen NC 2 l/min Jayy Buffie used for Geovanny Bryant RN procedure 15:24:16 Lidocaine 2% added 20ml Jayy Jayy for local to vial Geovanny Small MD anesthetic field 15:24:23 Heparin Flush added 2 bags Jayy Jayy used for Bag to Geovanny Small MD procedure (1000units/500ml field NS) 15:24:48 0.9% NaCl I.V. 100 Jayy Buffie used for ml/hr Geovanny Bryant RN procedure 15:28:15 Versed I.V. 1 mg Jayy Buffie for sedation Geovanyn Bryant RN 15:28:21 Fentanyl I.V. 50 mcg Jayy Buffie for sedation Geovanny Bryant RN 15:31:42 Versed I.V. 1 mg Jayy Buffie for sedation Geovanny Bryant RN 15:31:45 Fentanyl I.V. 50 mcg Jayy Buffie for sedation Geovanny Bryant RN 15:35:20 Versed I.V. 1 mg Jayy Buffie for sedation Geovanny Bryant RN 15:35:24 Fentanyl I.V. 50 mcg Jayy Buffie for sedation Geovanny Bryant RN 15:37:15 Radial Cocktail I.A. 1 Jayy Jayy for (Verapomil syringe Geovanny Small MD vasodilation 2mg/Nitro 400mcg/Heparin 1500units) Procedure Log Time Note 14:58:36 Signed procedure consent form obtained from patient. 14:58:37 Time tracking: Regular hours (M-F 7:00 - 5:00) 14:58:47 Plan of Care:Hemodynamics will remain stable., Cardiac rhythm will remain stable., Comfort level will be maintained., Respiratory function will remain adequate., Patient/ family verbilizes understanding of procedure., Procedure tolerated without complication., Recovers from procedure without complications.. 14:58:58 H&P Date Dictated: 04/07/2018 Within 30 days and on chart., H&P Addendum completed by physician on day of procedure. (MUST COMPLETE FOR ALL OUTPATIENTS). 14:59:27 Patient allergic to Other allergyLIPITOR, CODEINE, MORPHINE, SIMVASTIN 15:01:13 Kaila Smiley RT(R) sent for patient. Start room use. 15:08:05 Patient received from PCU to CCL 1 Alert and oriented. Tansferred to table in Supine position. 15:08:06 Warm blankets applied, and malissa hugger turned on for patient comfort. 15:08:07 Correct patient and procedure confirmed by team. 15:08:07 ECG and BP/O2 sat monitors applied to patient. 15:15:39 Baseline sample Acquired. 15:15:39 Vital chart was started 15:15:44 Rhythm: sinus rhythm 15:15:46 Full Disclosure recording started 15:15:49 Pre-procedure instructions explained to patient. 15:15:49 Pre-op teaching completed and patient verbalized understanding. 15:15:50 Family in waiting room. 15:15:51 Patient NPO since Midnight. 15:15:56 Is the patient allergic to Iodine/contrast media? No. 15:15:58 Was the patient premedicated? No 15:15:59 Is patient on blood thinner?No 15:16:00 Patient diabetic? Yes. 15:16:02 If diabetic: On Metformin? No 15:16:06 Previous problem with sedation/anesthesia? No ? 15:16:08 Snore? Yes 15:16:09 Sleep apnea? No 15:16:11 Deviated septum? No 15:16:11 Opens mouth fully? Yes 15:16:12 Sticks out tongue? Yes 15:16:15 Airway obstruction? No ? 15:16:20 Dentures? Yes IN TIGHT 15:16:24 Pre procedure: right dorsailis pedis pulse 2+ Normal; easily identifiable; not easily obliterated 15:16:26 Pre procedure: left dorsailis pedis pulse 2+ Normal; easily identifiable; not easily obliterated 15:16:28 Patient pain scale 0/10 ?. 15:16:34 IV patent on arrival in right hand with 0.9% NaCl at O. 15:16:36 Lab results completed and on chart. 15:16:52 Right Radial & Right Groin area was prepped with chlora-prep and draped in sterile fashion 15:16:54 Alarms reviewed by R. N. 15:16:54 Sharps counted by scrub and verified by R.N. 15:24:09 Oxygen 2 l/min NC was administered by Buffie Bryant RN; used for procedure; 15:24:16 Lidocaine 2% 20ml vial added to field was administered by Jayy Small MD; for local anesthetic; 15::23 Heparin Flush Bag (1000units/500ml NS) 2 bags added to field was administered by Jayy Small MD; used for procedure; 15:24:48 0.9% NaCl 100 ml/hr I.V. was administered by Phoenix Bryant RN; used for procedure; 15::19 --------ALL STOP TIME OUT------ 15::20 Final Timeout: patient, procedure, and site verified with staff and physician. All members of the team are in agreement. 15::21 Right Radial & Right Groin site verified by team. 15::25 Physical assessment completed. ASA score P 2 - A patient with mild systemic disease as per Jayy Small MD. 15:27:28 Sedation plan: IV Moderate Sedation Medication:Versed, Fentanyl 15:28:15 Versed 1 mg I.V. was administered by Phoenix Bryatn RN; for sedation; 15::21 Fentanyl 50 mcg I.V. was administered by Phoenix Bryant RN; for sedation; 15:30:36 Zero performed for pressure channel P1 15:30:46 Use device set Radial Dx or PCI 15:30:51 Zero performed for pressure channel P1 15:30:53 ACIST Syringe (54800) opened to sterile field. 15:30:55 ACIST Manifold (64716) opened to sterile field. 15:30:58 ACIST Hand Control (13711) opened to sterile field. 15:30:58 Tegaderm 4 x 4 (1626W) opened to sterile field. 15:31:01 Bag Decanter () opened to sterile field. 15:31:03 Medline Cath Pack ([id number]) opened to sterile field. 15:31:04 DIAGNOSTIC WIRE .035 260cm J wire (748941) opened to sterile field. 15:31:04 MBrace Wrist Support ([id number]) opened to sterile field. 15:31:06 SHEATH 6Fr Prelude Radial ([id number]) opened to sterile field. 15:31:42 Versed 1 mg I.V. was administered by Phoenix Bryant RN; for sedation; 15:31:45 Fentanyl 50 mcg I.V. was administered by Phoenix Bryant RN; for sedation; 15:32:14 Procedure started. 15:32:21 Local anesthetic to right radial artery with Lidocaine 2% by Jayy Small MD.INITIAL ACCESS ONLY 15:32:52 NEEDLE Cook 21G 4cm Radial (F63959) opened to sterile field. 15:33:05 STOPCOCK 3-Way Large Bore ([id number]) opened to sterile field. 15:35:20 Versed 1 mg I.V. was administered by Phoenix Bryant RN; for sedation; 15:35:24 Fentanyl 50 mcg I.V. was administered by Phoenix Bryant RN; for sedation; 15:36:45 A 6 Fr Short sheath was inserted into the Right Radial artery 15:36:58 A DIAGNOSTIC Calcium 110cm 5 Fr catheter ([id number]) was advanced over the wire and used for Procedure. 15:37:15 Radial Cocktail (Verapomil 2mg/Nitro 400mcg/Heparin 1500units) 1 syringe I.A. was administered by Jayy Small MD; for vasodilation; 15:37:36 Injector settings: Ml/sec: 7, Volume: 15, 15:38:12 LV gram done using SYKES 15:38:32 LV hemodynamics recorded. 15:39:00 EF : 55 % 15:40:07 LCA angiography performed. 15:41:20 RCA angiography performed. 15:42:09 Catheter removed. 15:42:16 Procedure ended.(Physican Out) 15:42:34 TR BAND Large ([id number]) opened to sterile field. 15:42:42 Sheath removed intact; hemostasis achieved with Mechanical Compression to the Right Radial artery. 15:43:44 Fluoroscopy time 01.70 minutes. 15:43:49 Flurop Dose total: 880 15:43:49 Fluoroscopy dose: 880 mGy 15:43:54 Contrast amount:Isovue 370 53ml. 15:43:56 Sharps counted by scrub and verified by R.N. 15:43:58 TR band inflated with 10cc of air. 15:44:03 Post-procedure physical assessment completed. ASA score P 2 - A patient with mild systemic disease as per Jayy Small MD. 15:44:07 Post procedure rhythm: unchanged. 15:44:08 Estimated blood loss: 5 ml 15:44:10 Post procedure instruction explained to patient.Patient verbalizes understanding. 15:44:10 Patient needs reinforcement of post procedure teaching. 15:45:47 Procedure and supply charges have been captured, reviewed, submitted and are correct. 15:45:52 Procedure Complication : No complications 15:45:54 Vital chart was stopped 15:45:54 See physician's report for complete and final results. 15:45:56 Report given to [facility]. 15:45:58 Patient transfered to [facility] with Bed. 15:46:00 Procedure ended. 15:46:00 Full Disclosure recording stopped 15:46:06 End room use (Document Last) Device Usage Item Name Manufacture Quantity Catalog Number Hospital Part Current M inimal Lot# / Charge Number Stock Stock Serial# Code ACIST Syringe Acist 1 27100 005742 487477 160881 2 0 (74511) [employer] ACIST Manifold Acist 1 16197 578837 407620 354612 5 (11126) [employer] ACIST Hand Acist 1 67352 477177 122211 656985 5 Control (44094) [employer] Tegaderm 4 x 4 3M 1 1626W 463211 948155 662104 5 (1626W) Bag Decanter Microtek 1 2002S 120318 52923 190905 5 (2001S) Medical Inc. Medline Cath Cardinal 1 [id number] 430510 19262 849698 5 [facility] ([id number]) DIAGNOSTIC WIRE St Ian 1 082673 434878 829870 136423 3 0 .035 260cm J wire (291958) MBrace Wrist Advanced 1 140-0250-00 739192 55750 635085 5 Support Vascular ([id number]) Dynamics SHEATH 6Fr Merit 1 [id number] 925241 202724 182388 5 Prelude Radial Medical ([id number]) NEEDLE Cook 21G Cook Medical 1 [id number] 702960 005024 549049 5 4cm Radial (B62689) STOPCOCK 3-Way Cook Medical 1 Z59825 894230 8793 091063 5 Large Bore ([id number]) DIAGNOSTIC Terumo 1 40-2194 891606 159742 472490 5 Calcium 110cm 5 Fr catheter (867155) TR BAND Large Terumo 1 [id number] 6530605 060723 414497 4 0 ([id number]) Signature Audit [place] Stage Time Signature Unsigned Intra-Procedure 04/08/2018 Kaila Smiley 3:47:08 PM RT(R) Signatures Monitor : Kaila Smiley Signature : RT Date : Time : [address] [address]
[~2018-04-07 11:59] MED LIST changes: -LANTUS SOL100 UNIT/1
[2018-04-07 13:14] LABS: BASOPHILS 0.2 % (0-2); EOSINOPHILS 2.1 % (0-7); HEMATOCRIT 37.5 % (36.0-48.0); IMMATURE GRANULOCYTES 0.4 % (0-5); LYMPHOCYTES 26.3 % (15-50); MCH 28.6 pg (26.0-34.0); MCV 89.3 fL (80.0-100.0); MEAN PLATELET VOLUME 9.9 fL (7.4-10.4); MONOCYTES 7.1 % (2-11); NEUTROPHILS 63.9 % (40-80); PLATELET COUNT 202 10x3/uL (130-400); RDW 15.8 % (11.5-14.5); WBC 9.9 10x3/uL (4.8-10.8)
[2018-04-07 14:14] LABS: ALBUMIN 2.7 g/dL (3.4-5.0); ALKALINE PHOSPHATASE 82 U/L (46-116); ALT (SGPT) 16 U/L (10-68); CALC OSMOLALITY 284 mosm/kg (275-300); CARBON DIOXIDE 27.3 mmol/L (21.0-32.0); CHLORIDE - SERUM 105 mmol/L (98-107); POTASSIUM - SERUM 4.5 mmol/L (3.5-5.1); PROTEIN - SERUM 6.4 g/dL (6.4-8.2); SODIUM 141 mmol/L (136-145); UREA NITROGEN 19 mg/dL (7-18); eGFR NON AFRICAN AMERICAN 58 mL/min (90-120)
[2018-04-07 14:16] LABS: GLUCOSE 143 mg/dL (74-106)
[2018-04-07 14:22] LABS: CHOLESTEROL, TOTAL 273 mg/dL (0-200); CKMB 0.9 U/L (0.0-3.6); CREATINE KINASE 30 UL (21-215); HDL CHOLESTEROL 55 mg/dL (32-96); LDL CHOLESTEROL 182 mg/dL (0-100); LDL-HDL RATIO 3.3 ratio (1.5-3.5); TRIGLYCERIDE 183 mg/dL (30-200); TROPONIN-I < 0.017 ng/mL (0.000-0.060)
[2018-04-07 17:09] LABS: CKMB 1.1 U/L (0.0-3.6); CREATINE KINASE 29 UL (21-215); TROPONIN-I < 0.017 ng/mL (0.000-0.060)
[2018-04-07 22:27] LABS: CKMB 1.1 U/L (0.0-3.6); CREATINE KINASE 73 UL (21-215); TROPONIN-I < 0.017 ng/mL (0.000-0.060)
[2018-04-07] MEDS ORDERED: LANTUS SOL100 UNIT/1 (22:47)
[2018-04-08] VITALS: BP 135/56
[2018-04-08 04:00] VITALS: BP 111/49
[2018-04-08 04:43] VITALS: Ht 162.6 cm; Wt 125.7 kg
[2018-04-08 05:08] LABS: CKMB 0.8 U/L (0.0-3.6); CREATINE KINASE 33 UL (21-215)
[2018-04-08 05:14] LABS: TROPONIN-I < 0.017 ng/mL (0.000-0.060)
[2018-04-08 07:59] VITALS: BP 120/46
[2018-04-08 10:29] LABS: CALC OSMOLALITY 276 mosm/kg (275-300); CALCIUM 8.6 mg/dL (8.5-10.1); CARBON DIOXIDE 27.1 mmol/L (21.0-32.0); CHLORIDE - SERUM 103 mmol/L (98-107); GLUCOSE 103 mg/dL (74-106); POTASSIUM - SERUM 3.9 mmol/L (3.5-5.1); SODIUM 138 mmol/L (136-145); UREA NITROGEN 16 mg/dL (7-18); eGFR NON AFRICAN AMERICAN 88 mL/min (90-120)
[2018-04-08 10:31] LABS: CREATININE - SERUM 0.7 mg/dL (0.6-1.3)
[2018-04-08 10:32] LABS: BASOPHILS 0.2 % (0-2); EOSINOPHILS 2.7 % (0-7); HEMATOCRIT 36.7 % (36.0-48.0); HEMOGLOBIN 11.3 g/dL (12-16); IMMATURE GRANULOCYTES 0.2 % (0-5); LYMPHOCYTES 35.3 % (15-50); MCH 28.1 pg (26.0-34.0); MCHC 30.8 g/dL (31.0-37.0); MEAN PLATELET VOLUME 10.8 fL (7.4-10.4); MONOCYTES 7.2 % (2-11); NEUTROPHILS 54.4 % (40-80); PLATELET COUNT 214 10x3/uL (130-400); RBC 4.02 10x6/uL (4.00-5.40); RDW 15.9 % (11.5-14.5); WBC 8.6 10x3/uL (4.8-10.8)
[2018-04-08 10:57] LABS: MCV 91.3 fL (80.0-100.0)
[2018-04-08 11:27] VITALS: BP 170/71
== END 2018-04-08 18:40 | disposition home or self-care (01) ==
LOC: D.ER 11:59 → D.EDHOLD 15:58 → D.M2 15:58 → D.EDHOLD 15:58 → OBSVTIME 15:59 → D.M2 20:21
PROVIDERS: Family Medicine; Internal Medicine Cardiovascular Disease
DX: R07.9 Chest pain, unspecified (principal); I25.110 Atherosclerotic heart disease of native coronary artery with unstable angina pectoris; Z95.5 Presence of coronary angioplasty implant and graft; E78.5 Hyperlipidemia, unspecified; I11.0 Hypertensive heart disease with heart failure; I50.9 Heart failure, unspecified; E11.9 Type 2 diabetes mellitus without complications; I48.91 Unspecified atrial fibrillation; J44.9 Chronic obstructive pulmonary disease, unspecified

== ENCOUNTER 2018-10-26 19:28 | Emergency (ER) | payer MEDICARE, OTHER ==
[~2018-10-26] VITALS: Ht 162.6 cm; Wt 122.5 kg
[~2018-10-26 19:28] MED LIST changes: +LANTUS SOL100 UNIT/1
[2018-10-26 19:33] VITALS: Ht 162.6 cm; Wt 122.5 kg
[2018-10-26 19:52] LABS: BASOPHILS 0.1 % (0-2); EOSINOPHILS 2.3 % (0-7); HEMATOCRIT 38.9 % (36.0-48.0); HEMOGLOBIN 12.5 g/dL (12-16); IMMATURE GRANULOCYTES 0.4 % (0-5); LYMPHOCYTES 30.1 % (15-50); MCH 26.7 pg (26.0-34.0); MCHC 32.1 g/dL (31.0-37.0); MCV 82.9 fL (80.0-100.0); MEAN PLATELET VOLUME 9.9 fL (7.4-10.4); MONOCYTES 5.7 % (2-11); NEUTROPHILS 61.4 % (40-80); PLATELET COUNT 259 10x3/uL (130-400); RBC 4.69 10x6/uL (4.00-5.40); RDW 16.1 % (11.5-14.5); WBC 13.5 10x3/uL (4.8-10.8)
[2018-10-26 20:07] LABS: INR 1.06 (0.85-1.17); PROTIME 13.3 SECONDS (11.6-15.0)
[2018-10-26 20:08] LABS: APTT 27.6 SECONDS (22.8-39.4)
[2018-10-26 20:14] LABS: ALKALINE PHOSPHATASE 108 U/L (46-116); ALT (SGPT) 15 U/L (10-68); BILIRUBIN - TOTAL 0.15 mg/dL (0.2-1.3); CALC OSMOLALITY 277 mosm/kg (275-300); CALCIUM 8.6 mg/dL (8.5-10.1); CHLORIDE - SERUM 100 mmol/L (98-107); CREATININE - SERUM 1.1 mg/dL (0.6-1.3); GLUCOSE 123 mg/dL (74-106); POTASSIUM - SERUM 3.9 mmol/L (3.5-5.1); PROTEIN - SERUM 7.3 g/dL (6.4-8.2); SODIUM 137 mmol/L (136-145); UREA NITROGEN 20 mg/dL (7-18); eGFR NON AFRICAN AMERICAN 52 mL/min (90-120)
[2018-10-26 20:26] LABS: CKMB 1.3 U/L (0.0-3.6); CREATINE KINASE 57 UL (21-215); MAGNESIUM - SERUM 1.7 mg/dL (1.8-2.4); TROPONIN-I < 0.017 ng/mL (0.000-0.060)
[2018-10-26 22:47] LABS: APPEARANCE CLEAR (CLEAR); BILIRUBIN NEGATIVE (NEGATIVE); COLOR YELLOW (YELLOW); GLUCOSE NEGATIVE (NEGATIVE); KETONE NEGATIVE (NEGATIVE); NITRITE NEGATIVE (NEGATIVE); PROTEIN NEGATIVE (NEGATIVE); UROBILINOGEN NORMAL (NORMAL)
[2018-10-26 23:04] VITALS: BP 136/78
== END 2018-10-26 23:05 | disposition home or self-care (01) ==
LOC: D.ER 19:28
PROVIDERS: Family Medicine
DX: R07.9 Chest pain, unspecified (principal); K21.9 Gastro-esophageal reflux disease without esophagitis; E11.9 Type 2 diabetes mellitus without complications; I44.4 Left anterior fascicular block

== ENCOUNTER 2018-11-27 21:08 | Emergency (ER) | payer MEDICARE, OTHER ==
[~2018-11-27] VITALS: Ht 162.6 cm; Wt 122.7 kg
[2018-11-27 21:41] VITALS: BP 128/84; Ht 162.6 cm; Wt 122.7 kg
[2018-11-27 22:18] LABS: BASOPHILS 0.1 % (0-2); EOSINOPHILS 0 % (0-7); HEMATOCRIT 38.1 % (36.0-48.0); HEMOGLOBIN 12.3 g/dL (12-16); IMMATURE GRANULOCYTES 1.2 % (0-5); LYMPHOCYTES 8.5 % (15-50); MCH 25.8 pg (26.0-34.0); MCHC 32.3 g/dL (31.0-37.0); MEAN PLATELET VOLUME 10.1 fL (7.4-10.4); MONOCYTES 3.3 % (2-11); NEUTROPHILS 86.9 % (40-80); RBC 4.76 10x6/uL (4.00-5.40); RDW 15.1 % (11.5-14.5); WBC 18.9 10x3/uL (4.8-10.8)
[2018-11-27 22:24] LABS: PLATELET COUNT 331 10x3/uL (130-400)
[2018-11-27 22:25] LABS: APPEARANCE CLEAR (CLEAR); BILIRUBIN NEGATIVE (NEGATIVE); COLOR STRAW (YELLOW); GLUCOSE NEGATIVE (NEGATIVE); KETONE NEGATIVE (NEGATIVE); NITRITE NEGATIVE (NEGATIVE); PROTEIN 2+ mg/dL (NEGATIVE); UROBILINOGEN NORMAL (NORMAL)
[2018-11-27 22:26] LABS: EPITHELIAL CELLS OCC /hpf (0-5); RED CELLS - URINE RARE /hpf (0-5); WHITE CELLS - URINE NSEEN /hpf (0-5)
[2018-11-27 22:34] LABS: ALBUMIN 3.1 g/dL (3.4-5.0); ANION GAP 16.1 mmol/L (8-16); BILIRUBIN - TOTAL 0.15 mg/dL (0.2-1.3); CALCIUM 9.5 mg/dL (8.5-10.1); CARBON DIOXIDE 27.4 mmol/L (21.0-32.0); CREATININE - SERUM 1.2 mg/dL (0.6-1.3); POTASSIUM - SERUM 4.5 mmol/L (3.5-5.1); PROTEIN - SERUM 7.6 g/dL (6.4-8.2)
== END 2018-11-28 00:13 | disposition home or self-care (01) ==
LOC: D.ER 21:08
PROVIDERS: Emergency Medicine
DX: E11.65 Type 2 diabetes mellitus with hyperglycemia (principal); T38.0X5A Adverse effect of glucocorticoids and synthetic analogues, initial encounter; Y92.019 Unspecified place in single-family (private) house as the place of occurrence of the external cause

== ENCOUNTER → 2019-02-16 14:20 | Outpatient (CLI) | payer MEDICARE ==
[2018-11-27 21:41] VITALS: BMI 46.4
== END | disposition home or self-care (01) ==
LOC: D.RAD 14:20
PROVIDERS: ATTEND Internal Medicine Pulmonary Disease
DX: J44.1 Chronic obstructive pulmonary disease with (acute) exacerbation (principal)

== ENCOUNTER 2019-02-25 09:00 | Outpatient (CLI) | payer MEDICARE, BC ==
[2018-11-27 21:41] VITALS: BMI 46.4
== END 2019-02-25 10:00 | disposition home or self-care (01) ==
LOC: D.MAMMO 09:00
PROVIDERS: ATTEND Family Medicine
DX: Z12.31 Encounter for screening mammogram for malignant neoplasm of breast (principal)